=== PATIENT | male | born 1960 | race Caucasian/White ===

== ENCOUNTER 2016-08-18 06:27 | Emergency (ER) | payer SELFPAY ==
[~2016-08-18] VITALS: Ht 160 cm; Wt 78.0 kg
[2016-08-18 06:32] VITALS: Ht 160 cm; Wt 78.0 kg
[2016-08-18] MEDS ORDERED: DOCU-144 PO (07:23)
[2016-08-18] MEDS ORDERED: HYDR-902 PO (07:23)
[2016-08-18] MEDS ORDERED: IBUP-1542 PO (07:23)
--- NOTE | 2016-08-18 09:34 | ERD ---
ER Documentation Chief Complaint Date/Time DATE: 08/18/16 TIME: 09:32 Chief Complaint ap since monday, has right inguinal hernia HPI Patient is a 56-year-old male with no medical problems who presents with a hernia. He said that he has pain in his right lower quadrant but says that it is his "hernia". 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 He lifts heavy boxes of dishes. He denies vomiting. He had a normal bowel movement yesterday. The hernia is reducible. He has had no treatment as of yet. Upon review of old medical records this is the patient's third visit to the ER since 2012. He does not currently have a primary doctor. ROS All systems reviewed and are negative except as per history of present illness. Medications Home Meds Active Scripts Ibuprofen* (Motrin*) 600 Mg Tab, 600 MG PO Q8, #30 TAB Prov:CHAD GONZALEZ MD 08/18/16 Docusate Sodium* (Colace*) 100 Mg Capsule, 100 MG PO TID, #30 CAP Prov:CHAD GONZALEZ MD 08/18/16 Hydrocodone/Acetaminophen ([place] 10-325 Tablet) 1 Each Tablet, 1 TAB PO Q6H Y for PAIN, #7 TAB Prov:CHAD GONZALEZ MD 08/18/16 Allergies Allergies: Coded Allergies: No Known Allergy (Unverified , 08/18/16) PMhx/Soc History of Surgery: Yes (3 HERNIA) Anesthesia Reaction: No Hx Neurological Disorder: No Hx Respiratory Disorders: No Hx Cardiac Disorders: No Hx Psychiatric Problems: No Hx Miscellaneous Medical Probl: No Hx Alcohol Use: No Hx Substance Use: No Hx Tobacco Use: Yes FmHx Family History: No diabetes Physical Exam Vitals Vital Signs Date Time Temp Pulse Resp B/P Pulse Ox O2 Delivery O2 Flow Rate FiO2 08/18/16 06:32 97.8 81 18 126/75 99 Physical Exam Const: No acute distress Head: Atraumatic Eyes: Normal Conjunctiva ENT: Normal External Ears, Nose and Mouth. Neck: Full range of motion..~ No meningismus. Resp: Clear to auscultation bilaterally Cardio: Regular rate and rhythm, no murmurs Abd: Soft, inguinal hernia in the right lower quadrant which is easily reducible without signs of obstruction or incarceration Skin: No petechiae or rashes Back: No midline or flank tenderness Ext: No cyanosis, or edema Neur: Awake and alert : No testicular swelling or pain, no hernia in the scrotal sac Procedures/MDM Patient is a 56-year-old male presents with what appears to be an acute right- sided inguinal hernia which is reducible. There is no sign of obstruction or incarceration at this time. I believe outpatient management is appropriate. I do believe that this will need to be surgically repaired. I will give him information for Dr. Guevara and he can schedule an outpatient elective hernia repair. The patient can return for any worsening symptoms. I doubt appendicitis or bowel obstruction at this time. Departure Diagnosis: Primary Impression: Hernia Additional Impression: Abdominal pain Abdominal location: right lower quadrant Qualified Code: R10.31 - Right lower quadrant abdominal pain Condition: Fair Patient Instructions: How a Hernia Develops Referrals: SHIELA GUEVARA M.D. Additional Instructions: Specialist:Usted tiene carly condicin mdica que requiere que michelle a un especialista dentro de los prximos 1-2 solis.POR FAVOR,CON SILVA SEGUIMIENTO DE PRIMARIA PHSICIAN refferal. SI USTED NO TIENE UN MDICO GENERAL Y / O USTED NO PUEDE PAGAR mai a un mdico,los siguientes [place] RECURSOS sido suministrado a usted. ES SILVA RESPONSABILIDAD PARA SER VISTOS POR EL ESPECIALISTA: CHAD GONZALEZ MD Aug 18, 2016 09:34
== END 2016-08-18 07:50 | disposition home or self-care (01) ==
LOC: E/R 06:27
DX: K40.90 Unilateral inguinal hernia, without obstruction or gangrene, not specified as recurrent (principal); Z87.891 Personal history of nicotine dependence
CPT/HCPCS: 99283

== ENCOUNTER 2016-09-07 06:17 | Emergency (ER) | END 2016-09-07 06:50 | disposition home or self-care (01) | DX: K40.90 Unilateral inguinal hernia, without obstruction or gangrene, not specified as recurrent (principal); Z87.891 Personal history of nicotine dependence ==

== ENCOUNTER 2016-09-16 20:41 | Inpatient (IN) | payer OTHER ==
[~2016-09-16] VITALS: Ht 177.8 cm; Wt 70.0 kg
[~2016-09-16 20:41] MED LIST: DOCU-144 PO; HYDR-902 PO; IBUP-1542 PO
[2016-09-16 20:44] VITALS: Ht 177.8 cm; Wt 70.0 kg
[2016-09-16] MEDS ORDERED: ONDANSETRON (ODT) 4 MG TAB ODT STA (21:36)
[2016-09-16] MEDS ORDERED: HYDROmorphONE 1 MG/ML SYG IM STA (21:36)
[2016-09-16] MEDS ORDERED: ONDANSETRON 4 MG INJ IV STA ×2 (21:45→23:32)
[2016-09-16] MEDS ORDERED: HYDROmorphONE 1 MG/ML SYG IV STA ×2 (21:45→23:32)
[2016-09-16] MEDS ORDERED: SOD CHLORIDE 0.9% 500 ML IV STA (21:45)
[2016-09-16 21:55] VITALS: TEMP 98.5
[2016-09-16] MEDS ORDERED: PROPOFOL 200 MG INJ IV ONE (22:00)
[2016-09-16 22:30] LABS: BASOPHIL # 0.1 10^3/ul (0.0-0.1); BASOPHILS % 0.7 % (0.0-2.0); EOSINOPHILS # 0.1 10^3/ul (0.0-0.5); EOSINOPHILS % 0.4 % (0.0-7.0); HEMATOCRIT 46.5 % (42.0-52.0); HEMOGLOBIN 15.8 g/dl (14.0-18.0); LYMPHOCYTES # 1.1 10^3/ul (0.8-2.9); LYMPHOCYTES % 6.8 % (15.0-51.0); MEAN CORPUSCULAR HEMOGLOBIN 30.5 pg (29.0-33.0); MEAN CORPUSCULAR VOLUME 89.8 fl (82.0-101.0); MEAN PLATELET VOLUME 9.7 fl (7.4-10.4); MONOCYTE # 0.4 10^3/ul (0.3-0.9); MONOCYTES % 2.4 % (0.0-11.0); NEUTROPHIL # 14.9 10^3/ul (1.6-7.5); NEUTROPHILS % 89.2 % (39.0-77.0); PLATELET COUNT 305 10^3/UL (140-415); RED BLOOD COUNT 5.18 10^6/ul (4.70-6.10); RED CELL DISTRIBUTION WIDTH 13.3 % (11.5-14.5); WHITE BLOOD COUNT 16.8 10^3/ul (4.8-10.8)
--- NOTE | 2016-09-16 22:47 | ERA ---
ER Documentation Chief Complaint Date/Time DATE: 09/16/16 TIME: 22:35 Chief Complaint abd pain since 3 hours ago, hx- right inguinal hernia HPI This is a 56-year-old male with a known history of right inguinal hernia this complaint is been hurting him for a month. He says today however the hernia became very severe all of a sudden he was having a lot of pain with nausea and vomiting. He says he has some mild diffuse stomach pain as well. No diarrhea no fever no chest pain shortness of breath. No difficulty urinating or hematuria pain is very severe and sharp in the right inguinal region without radiation ROS All systems reviewed and are negative except as per history of present illness. Medications Home Meds Discontinued Scripts Ibuprofen* (Motrin*) 600 Mg Tab, 600 MG PO Q8, #30 TAB Prov:CHAD GONZALEZ MD 08/18/16 Docusate Sodium* (Colace*) 100 Mg Capsule, 100 MG PO TID, #30 CAP Prov:CHAD GONZALEZ MD 08/18/16 Hydrocodone/Acetaminophen ([place] 10-325 Tablet) 1 Each Tablet, 1 TAB PO Q6H Y for PAIN, #7 TAB Prov:CHAD GONZALEZ MD 08/18/16 Allergies Allergies: Coded Allergies: No Known Allergy (Unverified , 08/18/16) PMhx/Soc Anesthesia Reaction: No Hx Neurological Disorder: No Hx Respiratory Disorders: No Hx Cardiac Disorders: No Hx Psychiatric Problems: No Hx Miscellaneous Medical Probl: No Hx Alcohol Use: Yes Hx Substance Use: No Hx Tobacco Use: Yes Smoking Status: Current every day smoker FmHx Family History: No coronary disease Physical Exam Vitals Vital Signs Date Time Temp Pulse Resp B/P Pulse Ox O2 Delivery O2 Flow Rate FiO2 09/16/16 23:09 41 18 122/93 100 Room Air 09/16/16 22:40 100 100 09/16/16 21:55 98.5 55 20 154/95 100 Room Air 09/16/16 20:44 97.8 68 20 163/77 100 Physical Exam Const: Well-developed, well-nourished, he is in obvious distress from pain Head: Atraumatic, normocephalic Eyes: Normal Conjunctiva, PERRLA, EOMI, normal sclera, no nystagmus ENT: Normal External Ears, Nose and Mouth, moist mucus membranes. Neck: Full range of motion. No meningismus, no lymphadenopathy. Resp: Clear to auscultation bilaterally, no wheezing, rhonchi, rales Cardio: Regular rate and rhythm, no murmurs, S1 S2 present Abd: Soft, mild diffuse tenderness 4, non distended. Normal bowel sounds, no guarding or rebound, no pulsitile abdominal masses or bruits, there is a right inguinal hernia that is very firm to palpation and extremely tender no skin erythema Skin: No petechiae or rashes, no ecchymosis , no maculopapular rash Back: No midline or flank tenderness Ext: No cyanosis, or edema, FROM x 4, normal inspection, neurovascularly intact x 4 Neur: Awake and alert, STR 5/5 x 4, sensation intact x 4, no focal findings, cerebellum intact Psych: Normal Mood and Affect Result Diagram: 09/16/16220409/16/162204 Results 24 hrs Laboratory Tests Test 09/16/16 22:05 White Blood Count 16.810^3/ul Red Blood Count 5.1810^6/ul Hemoglobin 15.8g/dl Hematocrit 46.5% Mean Corpuscular Volume 89.8fl Mean Corpuscular Hemoglobin 30.5pg Mean Corpuscular Hemoglobin Concent 34.0g/dl Red Cell Distribution Width 13.3% Platelet Count 72028^3/UL Mean Platelet Volume 9.7fl Neutrophils % 89.2% Lymphocytes % 6.8% Monocytes % 2.4% Eosinophils % 0.4% Basophils % 0.7% Nucleated Red Blood Cells % 0.0/100WBC Neutrophils # 14.910^3/ul Lymphocytes # 1.110^3/ul Monocytes # 0.410^3/ul Eosinophils # 0.110^3/ul Basophils # 0.110^3/ul Nucleated Red Blood Cells # 0.010^3/ul Prothrombin Time 12.3Sec Prothrombin Time Ratio 1.0 INR International Normalized Ratio 0.91 Activated Partial Thromboplast Time 30.8Sec Sodium Level 148mmol/L Potassium Level 3.9mmol/L Chloride Level 108mmol/L Carbon Dioxide Level 21mmol/L Anion Gap 23 Blood Urea Nitrogen 14mg/dl Creatinine 0.76mg/dl Glucose Level 142mg/dl Calcium Level 9.8mg/dl Current Medications Medications (Trade) Dose Ordered Sig/Erica Route PRN Reason Start Time Stop Time Status Last Admin Dose Admin Hydromorphone HCl (Dilaudid) 1 mg ONCE STAT IM 09/16/16 21:36 09/16/16 21:38 DC 09/16/16 21:42 Ondansetron HCl 4 mg 4 mg ONCE STAT ODT 09/16/16 21:36 09/16/16 21:38 DC 09/16/16 21:42 Sodium Chloride (NS) 500 ml @ 500 mls/hr Q1H STAT IV 09/16/16 21:45 09/16/16 22:44 DC 09/16/16 22:08 Hydromorphone HCl (Dilaudid) 1 mg ONCE STAT IV 09/16/16 21:45 09/16/16 21:47 DC 09/16/16 22:08 Ondansetron HCl (Zofran Inj) 4 mg ONCE STAT IV 09/16/16 21:45 09/16/16 21:47 DC 09/16/16 22:08 Propofol 100 mg 100 mg ONCE ONCE IV 09/16/16 22:00 09/16/16 22:01 DC 09/16/16 22:09 Sodium Chloride (NS) 1,000 ml @ 80 mls/hr [id number] IV 09/16/16 23:15 09/17/16 11:44 Ondansetron HCl (Zofran Inj) 4 mg BRIDGE ORDER PRN IV NAUSEA AND/OR VOMITING 09/16/16 23:30 09/17/16 23:29 Acetaminophen (Tylenol Tab) 650 mg ER BRIDGE PRN PO MILD PAIN/FEVER 09/16/16 23:30 09/17/16 23:29 Hydromorphone HCl (Dilaudid) 1 mg ONCE STAT IV 09/16/16 23:32 09/16/16 23:33 DC Ondansetron HCl (Zofran Inj) 4 mg ONCE STAT IV 09/16/16 23:32 09/16/16 23:33 DC Procedures/MDM Procedural Sedation: Pre-assessment performed. See preceding complete history and physical for details. Time out performed. See sedation documentation for details. Risk, benefits and alternatives were discussed with the patient. Medication(s): Propofol Complications: No hypoxic or apneic events Recovered without incident. A minimum of 16 minutes of face to face time was performed including preparation, sedation and recovery time. Right inguinal hernia reduction by me: After adequate conscious sedation, I applied steady pressure to the right inguinal hernia but was unsuccessful in reducing the hernia. I paged general surgery on-call Dr. Santos He said to go ahead and get a CAT scan of the abdomen to determine if he will take the patient to the OR tonight or wait until the morning. We will admit to panel in the interim EKG: Rate/Rhythm: Sinus bradycardia QRS, ST, QT: NORMAL UT, QRS, QT] Impression: [Sinus bradycardia Departure Diagnosis: Primary Impression: Incarcerated right inguinal hernia Condition: Stable STACIA CARMICHAEL DO Sep 16, 2016 22:46
[2016-09-16 22:50] LABS: CALCIUM 9.8 mg/dl (8.4-10.2); CREATININE 0.76 mg/dl (0.61-1.24); POTASSIUM 3.9 mmol/L (3.5-5.1)
[2016-09-16] MEDS ORDERED: SOD CHLORIDE 0.9% 1,000 ML IV SCH (23:15)
[2016-09-16 23:26] LABS: INR 0.91; PARTIAL THROMBOPLASTIN TIME 30.8 Sec (25.0-35.0); PROTIME 12.3 Sec (12.2-14.2)
[2016-09-16] MEDS ORDERED: ONDANSETRON 4 MG INJ IV PRN (23:30)
[2016-09-16] MEDS ORDERED: ACETAMINOPHEN 325 MG TAB PO PRN (23:30)
[2016-09-17] VITALS (21 sets, daily range): BP systolic 119–156; BP diastolic 62–83; PULSE 47–82; RESP 10–20
--- NOTE | 2016-09-17 00:40 | RADRPT ---
PROCEDURE: CT ABDOMEN/PELVIS WITHOUT CONTRAST CLINICAL INDICATION: 56-year-old male with abdominal pain. The patient has a history of right ing uinal hernia. TECHNIQUE: The study was performed utilizing a GE FiTeqpeed VCT 64-slice CT scanner. Direct axia l sections were obtained through the abdomen and pelvis without the use of intravenous contrast mate rial. Sagittal and coronal reformations were obtained. One or more of the following dose reduction t echniques were utilized: automated exposure control, adjustment of the mA and/or kV according to pat ient's size or use of iterative reconstruction technique. The images were reviewed on a [facility]st [facility]. CTD/vol = 7.9 mGy; Total Exam DLP = 446.9 mGy-cm. COMPARISON: None. FINDINGS: There is minimal bibasilar subsegmental atelectasis. There is no evidence for significant pleural e ffusion. The liver has a normal size and contour without focal areas of abnormal density. No intrah epatic nor extrahepatic biliary ductal dilatation is seen. The gallbladder demonstrates no wall thic kening nor pericholecystic fluid. No biliary stones are evident. The pancreas is without areas of ab normal attenuation. The spleen is identified and has a normal size without abnormal density. The ad renal glands are unremarkable. The kidneys are without abnormal density. No hydroureteronephrosis no r nephroureterolithiasis is evident. The urinary bladder contains urine. There is a small hiatal her flavia. There is a right inguinal hernia present with an opening of 25 x 27 mm containing mild fluid as well as a loop of small bowel which appears to be mildly dilated within the hernia sac however the bowel proximal and distal to the hernia is decompressed. The appendix is visualized and is without abnormal thickening or surrounding inflammatory reaction. There is no significant pelvic free fluid. The prostate is mildly prominent containing small punctate calcifications. The aortoiliac vessels mildly calcified with infrarenal mid abdominal aortic aneurysm measuring up to 3.3 x 3.2 cm. The os seous structures are intact. IMPRESSION: 1. Right inguinal hernia containing a loop of small bowel which appears to be mildly dilated and fl uid-filled within the hernia sac. A closed-loop partial or early obstruction cannot be excluded. Cl inical correlation for reducibility is necessary. 2. Infrarenal mid abdominal aortic aneurysm with maximal transverse dimension of 3.[address] evidence for appendicitis. 4. Small hiatal hernia. .Bg Danielson MD, MD Date Time Electronically viewed and signed by .Bg Danielson MD, on 09/17/2016 00:40 .Verónica/
--- NOTE | 2016-09-17 00:42 | RADRPT ---
PROCEDURE: CHEST - 1 VIEW CLINICAL INDICATION: 56-year-old male with chest pain. TECHNIQUE: A single frontal portable view of the chest was performed. The images were reviewed on a PACS workstation. COMPARISON: None. FINDINGS: The cardiomediastinal silhouette has a normal appearance. There is no evidence for an infiltrate. There is no evidence for congestive heart failure. There is no evidence for pneumothorax. There is a n old fracture deformity involving the left sixth and seventh ribs in the mid axillary line. IMPRESSION: 1. No evidence for active cardiopulmonary disease. 2. Old left sixth and seventh rib fracture deformities. .Bg Danielson MD, MD Date Time Electronically viewed and signed by .Bg Danielson MD, on 09/17/2016 00:42 .M/
[2016-09-17] MEDS: morphine 4 MG/ML VIAL IV PRN ×3 (00:52→23:22)
[2016-09-17] MEDS ORDERED: ONDANSETRON 4 MG INJ IV PRN ×3 (01:00→07:00)
[2016-09-17] MEDS ORDERED: DEXTROSE 5%-0.45% NACL 1,000 ML IV SCH (01:30)
[2016-09-17] MEDS ORDERED: HYDROmorphONE 1 MG/ML SYG IV PRN ×3 (02:00→09:00)
[2016-09-17] MEDS: PIPER-TAZO 3.375 GM IV (PMX) 100 ML IVPB SCH ×2 (02:06→05:03)
[2016-09-17 04:53] LABS: BASOPHIL # 0.1 10^3/ul (0.0-0.1); BASOPHILS % 0.4 % (0.0-2.0); HEMOGLOBIN 14.9 g/dl (14.0-18.0); LYMPHOCYTES # 0.9 10^3/ul (0.8-2.9); LYMPHOCYTES % 5.9 % (15.0-51.0); MEAN CORPUSCULAR HEMOGLOBIN 29.7 pg (29.0-33.0); MEAN CORPUSCULAR HGB CONC 33.1 g/dl (32.0-37.0); MEAN CORPUSCULAR VOLUME 89.8 fl (82.0-101.0); MEAN PLATELET VOLUME 9.7 fl (7.4-10.4); MONOCYTE # 0.4 10^3/ul (0.3-0.9); MONOCYTES % 2.3 % (0.0-11.0); NEUTROPHILS % 90.9 % (39.0-77.0); PLATELET COUNT 302 10^3/UL (140-415); RED BLOOD COUNT 5.01 10^6/ul (4.70-6.10); RED CELL DISTRIBUTION WIDTH 13.4 % (11.5-14.5); WHITE BLOOD COUNT 15.4 10^3/ul (4.8-10.8)
[2016-09-17 05:43] LABS: ALBUMIN 4.2 g/dl (3.3-4.9); ALBUMIN/GLOBULIN RATIO 1.2; BILIRUBIN,INDIRECT 0.3 mg/dl (0-1.1); BILIRUBIN,TOTAL 0.3 mg/dl (0.2-1.3); CALCIUM 9.5 mg/dl (8.4-10.2); CREATININE 0.72 mg/dl (0.61-1.24); POTASSIUM 3.9 mmol/L (3.5-5.1); TOTAL PROTEIN 7.7 g/dl (6.1-8.1)
[2016-09-17] MEDS ORDERED: MIDAZOLAM 1 MG/ML 2 ML INJ ONE (06:49)
[2016-09-17] MEDS ORDERED: PROPOFOL 20 ML ONE (06:50)
[2016-09-17] MEDS ORDERED: FENTAnyl 50 MCG/ML VIAL ONE (06:50)
--- NOTE | 2016-09-17 06:51 | CONS ---
Date/Time of Note Date/Time of Note DATE: 09/17/16 TIME: 06:51 Assessment/Plan Assessment/Plan Additional Assessment/Plan [facility] INPATIENT CONSULTATION NOTE DATE OF SERVICE: 09/17/2016 PLACE OF SERVICE: [facility], preoperative area ASSESSMENT AND PLAN: A very-pleasant 56-year-old otherwise seemingly healthy gentleman presenting with incarcerated right inguinal hernia. Due to his elevated white blood cell count and amount of abdominal pain, I assess this problem to be an urgent surgical problem that needs repair with a laparoscopic, possible open right inguinal hernia repair, possibly with mesh. I explained my rationale to the patient and described the operation in detail including risks, benefits, and alternatives. After careful consideration, the patient appeared to understand and agreed with the plans. Please note that there was no family present during my discussions with the patient. He also expressed to me that he did not need me to call in the morning after the operation was done. With above assessment, I've recommended the followin. To the operating room for above Thank you very much for having me involved in the care of this very pleasant patient and wonderful family. If you have any questions, please feel free to contact me at [phone]. Nature of presenting problem: High severity Please note that, given the limited number of diagnoses or management options, the moderate amount and/or complexity of data needed to be reviewed, and high risk of complications and/or morbidity or mortality, this qualifies as moderate complexity type of decision-making. Disclaimer: Inadvertent spelling and grammatical errors are likely due to EHR/ dictation software use and do not reflect on the quality of delivered patient care. Also, please note that the electronic time recorded on this node does not necessarily reflect the actual time of the visit. Updated clinical summary: 56-year-old gentleman with right inguinal hernia who presented to [facility] emergency department with incarcerated right inguinal hernia associated with nausea and vomiting and white blood cell count of 16. Comorbidities: 1. History of inguinal hernia on the right 2. Smoking (current every day) 3. Infrarenal mid abdominal aortic aneurysm with maximal transverse dimension of 3.3 cm. ([facility] CT abd/pelvis 09/17/16) 4. Small hiatal hernia. ([facility] CT abd/pelvis 09/17/16) CONSULTATION REQUESTED BY: Milagro Leon MD HISTORY OF PRESENT ILLNESS: The patient is a very pleasant 56-year-old gentleman without significant known other medical problems who has had a known right inguinal hernia that has required 2 or 3 previous recent emergency room visits. Patient was instructed to follow-up with surgery, but that did not happen. He presented to the emergency department last night with abdominal pain of a few hours duration associated with nausea and vomiting. His exam showed an incarcerated hernia that was not reducible. CT scan demonstrated loop of bowel inside of the hernia without evidence of pneumatosis or free air. I mobilized the operating room team to do an urgent operation to repair the hernia early this morning. I met him in the preoperative area and did a complete history and physical. He reported no other major complaints to me at that time and his main complaint was pain which was 10 out of 10 at its worse, located in the right lower quadrant, exacerbated with pressure on the area and not alleviated by any factors. Some radiation to the upper flanks. No fevers or chills at home and no issues with blood in the stool or urine, or major difficulties with diarrhea or constipation in the past. ALLERGIES: NO KNOWN DRUG ALLERGIES MEDICATIONS Documented in the electronic records and reviewed by me. Please see the electronic records for details, as well as details for inpatient medications which were also reviewed by me. 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 + Tob (current every day);- ETOH;-IVDU FAMILY HISTORY: There are no significant medical, surgical or oncologic issues in the family as reported by the patient or reflected in the chart. REVIEW OF SYSTEMS: Other than mentioned above, there were no other pertinent positives or pertinent negatives in an otherwise complete 14 point review of systems. PHYSICAL EXAMINATION GENERAL: The patient appears to be a very pleasant gentleman of descent lying in bed, appearing stated age, and otherwise in no acute distress. BMI: 22.1 VITAL SIGNS: AVSS (please also see auto important data if available as well as the electronic records) HEENT: Normocephalic and atraumatic. Extraocular muscles and hearing are grossly intact bilaterally and symmetrically. Sclerae are nonicteric. Oral cavity is clear; oral mucosa appear to be pink and moist. Dentition: fair. NECK: Supple. There is no lymphadenopathy or JVD. There is no submental, submandibular or supraclavicular lymphadenopathy. CHEST: Rises symmetrically with each breath; patient is breathing comfortably. There are no audible wheezes, rales or rhonchi on the gross exam. HEART: Pulse is regular and palpable on the right wrist. Capillary refill is normal. Carotid pulses are palpable bilaterally and symmetrically in the neck. EXTREMITIES: Lower extremities contain no pitting edema around the ankles bilaterally and symmetrically. ABDOMEN: Abdomen is soft, mildly tender towards the right lower quadrant was significantly tender or the lump in the right groin, and nondistended. No evidence of ascites, organomegaly, caput medusae, engorged subcutaneous veins, or other abnormalities. There are no peritoneal signs or guarding. Skin overlying the right groin area is normal. There is no evidence of hernia on the left side. Right groin hernia is not reducible. SKIN: Appears to be pink and feels warm to touch. NEUROLOGIC: Awake, alert, and follows commands appropriately. LABORATORY DATA: White blood cell count 16.8 on admission and 15.4 after hydration. Hemoglobin 14.9, platelets 302, sodium 146, CO2 28, creatinine 0.72 , alkaline phosphatase 130, albumin 4.2 after hydration. INR 0.91. IMAGING: See electronic chart. Please note that I've personally reviewed all pertinent available images and I agree in general with their overall reported findings. Abdomen and pelvic CT [facility] 09/17/2016 IMPRESSION: 1. Right inguinal hernia containing a loop of small bowel which appears to be mildly dilated and fluid-filled within the hernia sac. A closed-loop partial or early obstruction cannot be excluded. Clinical correlation for reducibility is necessary. 2. Infrarenal mid abdominal aortic aneurysm with maximal transverse dimension of 3.[address] evidence for appendicitis. 4. Small hiatal hernia. Consultation Date/Type/Reason Admit Date/Time Sep 16, 2016 at 23:16 Social History Smoking Status: Current every day smoker Exam/Review of Systems Vital Signs Vitals Vital Signs Date Time Temp Pulse Resp B/P Pulse Ox O2 Delivery O2 Flow Rate FiO2 09/17/16 03:00 97.8 65 16 140/78 99 Room Air 09/16/16 22:40 100 Intake and Output 09/16/16 09/16/16 09/17/16 15:00 23:00 07:00 Intake Total 100 ml Output Total 1000 ml Balance -900 ml Results Result Diagram: 09/17/16 0438 09/17/16 0438 Results 24 hrs Laboratory Tests Test 09/16/16 22:05 09/17/16 04:38 White Blood Count 16.8 H 15.4 H Red Blood Count 5.18 5.01 Hemoglobin 15.8 14.9 Hematocrit 46.5 45.0 Mean Corpuscular Volume 89.8 89.8 Mean Corpuscular Hemoglobin 30.5 29.7 Mean Corpuscular Hemoglobin Concent 34.0 33.1 Red Cell Distribution Width 13.3 13.4 Platelet Count 305 302 Mean Platelet Volume 9.7 9.7 Neutrophils % 89.2 H 90.9 H Lymphocytes % 6.8 L 5.9 L Monocytes % 2.4 2.3 Eosinophils % 0.4 0.0 Basophils % 0.7 0.4 Nucleated Red Blood Cells % 0.0 0.0 Neutrophils # 14.9 H 14.0 H Lymphocytes # 1.1 0.9 Monocytes # 0.4 0.4 Eosinophils # 0.1 0.0 Basophils # 0.1 0.1 Nucleated Red Blood Cells # 0.0 0.0 Prothrombin Time 12.3 Prothrombin Time Ratio 1.0 INR International Normalized Ratio 0.91 Activated Partial Thromboplast Time 30.8 Sodium Level 148 H 146 H Potassium Level 3.9 3.9 Chloride Level 108 103 Carbon Dioxide Level 21 28 Anion Gap 23 H 19 H Blood Urea Nitrogen 14 12 Creatinine 0.76 0.72 Glucose Level 142 172 Calcium Level 9.8 9.5 Total Bilirubin 0.3 Direct Bilirubin 0.00 Indirect Bilirubin 0.3 Aspartate Amino Transf (AST/SGOT) 19 Alanine Aminotransferase (ALT/SGPT) 29 Alkaline Phosphatase 130 H Total Protein 7.7 Albumin 4.2 Globulin 3.50 H Albumin/Globulin Ratio 1.20 Medications Medications Current Medications Sodium Chloride (NS) 1,000 ml @ 80 mls/hr [id number] IV ; Start 09/16/16 at 23:15 ; Stop 09/17/16 at 11:44 Morphine Sulfate 4 mg 4 mg Q4H PRN IV SEVERE PAIN LEVEL 7-10 Last administered on 09/17/16t 05:02; Admin Dose 4 MG; Start 09/17/16 at 01:00 Dextrose/Sodium Chloride (D5-1/2ns) 1,000 ml @ 100 mls/hr Q10H IV Last administered on 09/17/16 01:51; Admin Dose 100 MLS/HR; Start 09/17/16 at 01:30 Hydromorphone HCl (Dilaudid) 1 mg Q3H PRN IV PAIN LEVEL 7-10; Start 09/17/16 at 02:00 Ondansetron HCl 4 mg 4 mg Q4H PRN IV NAUSEA AND/OR VOMITING; Start 09/17/16 at 02:00 Piperacillin Sod/ Tazobactam Sod (Zosyn 3.375gm/ 100 ml (Pmx)) 100 ml @ 200 mls /hr Q6 IVPB Last administered on 09/17/16 05:03; Admin Dose 200 MLS/HR; Start 09/17/16 at 02:00 SHIELA GUEVARA M.D. Sep 17, 2016 06:51
[2016-09-17] MEDS ORDERED: ROCURONIUM 50 MG INJ ONE (06:55)
[2016-09-17] MEDS ORDERED: SUCCINYLCHOLINE CHLORIDE 100 MG/5 ML SYG IV ONE (06:55)
[2016-09-17] MEDS ORDERED: NEOSTIGMINE 3 MG/3 ML SYRINGE ONE ×2 (06:56)
[2016-09-17] MEDS ORDERED: DEXAMETHASONE 4 MG/ML 1 ML INJ ONE (06:56)
[2016-09-17] MEDS ORDERED: ONDANSETRON 4 MG INJ ONE (06:56)
[2016-09-17] MEDS ORDERED: GLYCOPYRROLATE 0.4 MG INJ ONE (06:56)
[2016-09-17] MEDS ORDERED: PROCHLORPERAZINE 10 MG INJ IV PRN (07:00)
[2016-09-17] MEDS ORDERED: KETOROLAC 30 MG INJ IV PRN (07:00)
[2016-09-17] MEDS ORDERED: EPHEDrine SULFATE 50 MG/5 ML SYG ONE (07:00)
[2016-09-17] MEDS ORDERED: LIDOCAINE 2% (SDV) 5 ML INJ ONE (07:00)
[2016-09-17] MEDS ORDERED: HYDROmorphONE (0.2 MG/ML) 10ML SYG IV PRN (07:00)
[2016-09-17] MEDS ORDERED: DIPHENHYDRAMINE 50 MG INJ IV PRN (07:00)
[2016-09-17] MEDS ORDERED: MEPERIDINE 25 MG INJ IV PRN (07:00)
[2016-09-17] MEDS ORDERED: POLYMYXIN/BACITRACIN 1L IRRIG ONE (07:06)
[2016-09-17] MEDS ORDERED: BUPIVACAINE 0.25%/EPI (SDV) 30 ML INJ ONE (07:06)
[2016-09-17] MEDS ORDERED: HYDROmorphONE 2 MG/ML SYG ONE (07:46)
[2016-09-17] MEDS ORDERED: DOCUSATE SODIUM 100 MG CAP PO PRN (09:00)
[2016-09-17] MEDS ORDERED: BISACODYL 10 MG SUPP PR PRN (09:00)
[2016-09-17] MEDS ORDERED: NA PHOSPHATE/BIPHOS 133 ML ENEMA PR PRN (09:00)
--- NOTE | 2016-09-17 09:02 | OPR ---
Date/Time of Note Date/Time of Note DATE: 09/17/16 TIME: 09:01 Operative Report Operative\Procedure Findings [facility] INPATIENT OPERATIVE NOTE PLACE OF SERVICE: [facility] DATE OF SURGERY: 09/17/2016 PREOPERATIVE DIAGNOSIS: 1. Right inguinal hernia with incarceration possible bowel obstruction. History of inguinal hernia on the right 2. Smoking (current every day) 3. Infrarenal mid abdominal aortic aneurysm with maximal transverse dimension of 3.3 cm. ([facility] CT abd/pelvis 09/17/16) 4. Small hiatal hernia. ([facility] CT abd/pelvis 09/17/16) 5. Status post umbilical hernia repair POSTOPERATIVE DIAGNOSIS: 1. Right inguinal hernia with incarceration possible bowel obstruction. History of inguinal hernia on the right 2. Smoking (current every day) 3. Infrarenal mid abdominal aortic aneurysm with maximal transverse dimension of 3.3 cm. ([facility] CT abd/pelvis 09/17/16) 4. Small hiatal hernia. ([facility] CT abd/pelvis 09/17/16) 5. Status post umbilical hernia repair OPERATION: 1. Laparoscopic right inguinal hernia repair with mesh (10 cm x 15 cm Symbotex) SURGEON: Shiela Guevara M.D. COOLER OPERATOR: None ANESTHESIA: General endotracheal tube anesthesia ANESTHESIOLOGIST: Milagro Castro M.D. BRIEF SUMMARY: An otherwise uncomplicated laparoscopic right inguinal hernia repair with mesh was performed with findings of incarcerated but viable bowel. Updated clinical summary: 56-year-old gentleman with right inguinal hernia who presented to [facility] emergency department with incarcerated right inguinal hernia associated with nausea and vomiting and white blood cell count of 16. Comorbidities: 1. History of inguinal hernia on the right 2. Smoking (current every day) 3. Infrarenal mid abdominal aortic aneurysm with maximal transverse dimension of 3.3 cm. ([facility] CT abd/pelvis 09/17/16) 4. Small hiatal hernia. ([facility] CT abd/pelvis 09/17/16) BRIEF HISTORY: The patient is a very pleasant 56-year-old gentleman with right inguinal hernia who presented to [facility] emergency department with incarcerated right inguinal hernia associated with nausea and vomiting and white blood cell count of 16. I met with the patient (no family present during my discussions with the patient) and counseled them regarding the possible options of treatment, and I strongly suggested a laparoscopic, possible open, right groin hernia repair, possible mesh, possible bilateral. We reviewed the operation in detail as well as the risks, benefits, alternatives, and expected outcomes of this operation. After careful consideration of all the risks, benefits, and alternatives, the patient appeared to understand those risks and wished to proceed with surgery. For a detailed report of my consultation with patient, please refer to my separate consultation note. STATEMENT OF THE INFORMED CONSENT: The patient appeared to understand the risks of the operation to include, but not be limited to risk of postoperative pain and scar tissue, possible infection or bleeding requiring other interventions such as opening the wound, placement of drainage catheters, or other operative interventions; possible injury to surrounding to structures including bowel, bladder, bile duct, or blood vessels, or solid organs such as liver, kidney, or pancreas requiring other interventions or procedures; possible infection of the mesh causing significant increase in morbidity and mortality and requiring multiple interventions including but not limited to, placement of drainage catheters, imaging studies, as well as operative interventions with possible removal of the mesh and recurrence of hernia requiring future repair; possible other source of sepsis such as urinary tract infections or pneumonias, or other sources of potentially life threatening problems such as deep venous thrombus formation causing pulmonary embolism, myocardial arrhythmias and infarctions, and even . After careful consideration of all their options, the patient appeared to understand and wished to proceed with surgery. DESCRIPTION OF PROCEDURE: After obtaining informed consent, the patient was brought into the operating room and was placed in a normal supine position, where successful general endotracheal tube anesthesia was performed. Intravenous access was already in place and intravenous antimicrobials had been appropriately chosen and dosed prior to the operation. The patient's abdominal skin was prepped and draped from the nipple line down to the level of the upper thighs including the groin and in the usual sterile fashion. We then called a surgical time-out where the patient's identification, date of , nature of the operation, allergies, presence of intravenous antimicrobials, presence of needed equipment, and any other concerns were reviewed and agreed upon by all members of the operating room team. We then started the operation by placing a 5 mm [employer] trocar into the peritoneal space through a left lower quadrant 5 mm skin incision and using direct entry technique visualizing all the layers of the abdominal wall as we entered. Upon entry to the peritoneal space, we did not notice any obvious evidence of injury to underlying structures. We insufflated the abdominal cavity to a maximum pressure of 15 mmHg and again noted no significant adhesions in the region and found presence of a right inguinal hernia as suggested by the preoperative evaluation. We placed a 12 mm trocar in the umbilical space as well as another 5 mm trocar in the right lower quadrant all under direct visualization and after injecting the sites with quarter percent Marcaine with epinephrine. With our instruments in place, we had excellent visualization and access to the pelvis. By positioning the patient in a Trendelenburg left side down position, the contents of the inguinal hernia appear to be made up of a loop of small intestine that was going into the right inguinal hernia through the internal ring. The hernia was not spontaneously reducing. The proximal and distal bowel appeared to be viable. We carefully inspected the left side and there was no evidence of any hernia on that side. We then were able to reduce the contents of the hernia sac with gentle manipulation from the inside and outside. The bowel that was incarcerated in the right inguinal hernia sac appear to be hyperemic but not necrotic. The area of hyperemia quickly resolved after removal of the bowel from the hernia. There is no other evidence of concern for infection or perforation. We then placed a transverse cut above the area of the hernia in the standard fashion on the peritoneum and took down the peritoneal covering from the right groin region until we were able to dissect the sac completely from the cord structures. After complete dissection of the sac from the cord structures, we ensured adequate hemostasis and then placed a 10 cm x 15 cm mesh (I had to cut to size a larger mesh into the desired mesh of the available Symbotex in the OR) into the abdominal cavity and widely covered the area of the right hernia with mesh within the pocket. The mesh laid in the pocket nicely. We then secured the mesh onto the pubic tubercle and on the superior aspect and the most lateral aspect of the mesh using absorbable tacks. This was done under low insufflation. We again ensured adequate hemostasis and then covered the mesh with peritoneum using the peritoneal layer that we had taken down previously. After insuring adequate hemostasis, we removed all our equipment from the abdominal cavity including the pneumoperitoneum, closed the umbilical fascial defect using one figure-of- eight 0 Vicryl suture on a UR 6 needle, washed the wounds with copious amounts normal saline, injected the initial entry site with quarter percent Marcaine with epinephrine, and then closed the skin using interrupted 4 Monocryl suture. Light dressing was then applied. At the end of the operation, both the sponge count and needle count were reportedly correct x2. The patient tolerated the procedure without any reported complications. ESTIMATED BLOOD LOSS: 5 mL BLOOD OR BLOOD PRODUCT TRANSFUSIONS: None to my knowledge. SPECIMENS: None COMPLICATIONS: None. DISPOSITION: Recovery area. Disclaimer: Inadvertent spelling and grammatical errors are likely due to EHR/ dictation software use and do not reflect on the quality of delivered patient care. Also, please note that the electronic time recorded on this node does not necessarily reflect the actual time of the visit. SHIELA GUEVARA M.D. Sep 17, 2016 09:02
[2016-09-17] MEDS: D5W-0.45 NACL + KCL 20 MEQ 1,000 ML IV SCH ×2 (10:29→19:00)
[2016-09-17] MEDS: FAMOTIDINE 20 MG INJ IV SCH (10:37)
[2016-09-17] MEDS: ENOXAPARIN 40 MG/0.4 ML SYG SC SCH (11:59)
--- NOTE | 2016-09-17 13:06 | HP ---
Date/Time of Note Date/Time of Note DATE: 09/17/16 TIME: 12:49 Assessment/Plan VTE Prophylaxis VTE Prophylaxis Intervention: SCD's Lines/Catheters IV Catheter Type (from Nrs): Peripheral IV Assessment/Plan Assessment/Plan - sp Laparoscopic right inguinal hernia repair with mesh (10 cm x 15 cm Symbotex ) - Right inguinal hernia with incarceration possible bowel obstruction. History of inguinal hernia on the right - Infrarenal mid abdominal aortic aneurysm with maximal transverse dimension of 3.3 cm. ([facility] CT abd/pelvis 09/17/16) -Per surgery -N.p.o., diet per surgery -IV fluids -Pain control - Incentive spirometer -Check for signs and symptoms of infection - Current Tobaccoism- everyday - smoking cessation -Dyslipidemia -Chronic obstructive pulmonary disease-no active issues - Small hiatal hernia. - Status post umbilical hernia repair -SCDs for DVT prophylaxis Patient is n.p.o. hold to p.o. medications once stable further recommendations based on patient's clinical course and of care discussed with Dr. Leon/staff /the patient, HPI/ROS Admit Date/Time Admit Date/Time Sep 16, 2016 at 23:16 Hx of Present Illness This is a 56-year-old male with a known history of right inguinal hernia this complaint is been hurting him for a month. He says today however the hernia became very severe all of a sudden he was having a lot of pain with nausea and vomiting. He says he has some mild diffuse stomach pain as well. No diarrhea no fever no chest pain shortness of breath. No difficulty urinating or hematuria pain is very severe and sharp in the right inguinal region without radiation. Per patient he smokes every day. Patient denies any fall or accident ROS All systems reviewed and are negative except as per history of present illness. Allergies Allergies: Coded Allergies: No Known Allergy (Unverified , 08/18/16) PMhx/Soc Anesthesia Reaction: No Hx Neurological Disorder: No Hx Respiratory Disorders: No Hx Cardiac Disorders: No Hx Psychiatric Problems: No Hx Miscellaneous Medical Probl: No Hx Alcohol Use: Yes Hx Substance Use: No Hx Tobacco Use: Yes Smoking Status: Current every day smoker FmHx Family History: No coronary disease ROS Respiratory: no complaints Cardiovascular: no complaints Gastrointestinal: pain (Surgical pain otherwise pain from hernia is much better ) Genitourinary: no complaints Musculoskeletal: no complaints Skin: no complaints Neurologic: no complaints PMH/Family/Social Social History Smoking Status: Current every day smoker Exam/Review of Systems Vital Signs Vitals Vital Signs Date Time Temp Pulse Resp B/P Pulse Ox O2 Delivery O2 Flow Rate FiO2 09/17/16 10:38 98.6 09/17/16 09:52 56 12 126/77 96 Room Air 09/16/16 22:40 100 Intake and Output 09/16/16 09/16/16 09/17/16 15:00 23:00 07:00 Intake Total 100 ml Output Total 1000 ml Balance -900 ml Exam Constitutional: alert, oriented, well developed Respiratory: clear to auscultation, normal air movement Cardiovascular: nl pulses, regular rate and rhythm Gastrointestinal: other (sp Laparoscopic right inguinal hernia repair with mesh ), soft Musculoskeletal: nl extremities to inspection Extremities: normal pulses Neurological: nl mental status, nl speech Skin: other Labs Result Diagram: 09/17/1643709/17/16437 Medications Medications Current Medications Morphine Sulfate (morphine) 4 mg Q4H PRN IV SEVERE PAIN LEVEL 7-10 Last administered on 09/17/16t 05:02; Admin Dose 4 MG; Start 09/17/16 at 01:00 Hydromorphone HCl (Dilaudid) 1 mg Q3H PRN IV PAIN LEVEL 7-10; Start 09/17/16 at 02:00 Ondansetron HCl 4 mg 4 mg Q4H PRN IV NAUSEA AND/OR VOMITING; Start 09/17/16 at 02:00 Potassium Chloride/Dextrose/ Sod Cl (D5-1/2ns + KCl 20 Meq) 1,000 ml @ 100 mls/ hr Q10H IV Last administered on 09/17/16t 10:29; Admin Dose 100 MLS/HR; Start 09/17/16 at 09:00 Acetaminophen/ Hydrocodone Bitart ([place] (5/325)) 1 tab Q4H PRN PO PAIN LEVEL 4 -7; Start 09/17/16 at 09:00 Acetaminophen/ Hydrocodone Bitart ([place] (5/325)) 2 tab Q4H PRN PO PAIN LEVEL 7 -10; Start 09/17/16 at 09:00 Hydromorphone HCl (Dilaudid) 0.5 mg Q2H PRN IV PAIN; Start 09/17/16 at 09:00 Hydromorphone HCl (Dilaudid) 1 mg Q2H PRN IV SEVERE PAIN; Start 09/17/16 at 09: 00 Docusate Sodium (Colace) 100 mg BID PRN PO CONSTIPATION; Start 09/17/16 at 09: 00 Bisacodyl (Dulcolax Supp) 10 mg BID PRN [place] CONSTIPATION; Start 09/17/16 at 09: 00 Sodium Biphosphate/ Sodium Phosphate (Fleet Enema) 133 ml BID PRN [place] CONSTIPATION; Start 09/17/16 at 09:00 Famotidine (Pepcid Iv) 20 mg DAILY IV Last administered on 09/17/16 10:37; Admin Dose 20 MG; Start 09/17/16 at 09:00 Enoxaparin Sodium (Lovenox) 40 mg DAILY SC Last administered on 09/17/16 11:59 ; Admin Dose 40 MG; Start 09/17/16 at 09:00 Procedures Procedures EKG: Rate/Rhythm: Sinus bradycardia QRS, ST, QT: NORMAL NM, QRS, QT] Impression: [Sinus bradycardia BHAVNA BARKER Sep 17, 2016 12:59
[2016-09-17 13:24] LABS: ALBUMIN 4.3 g/dl (3.3-4.9); BILIRUBIN,INDIRECT 0.3 mg/dl (0-1.1); BILIRUBIN,TOTAL 0.3 mg/dl (0.2-1.3); TOTAL PROTEIN 7.8 g/dl (6.1-8.1)
[2016-09-17] MEDS: ZOLPIDEM 5 MG TAB PO PRN (21:37)
[2016-09-18] MEDS: D5W-0.45 NACL + KCL 20 MEQ 1,000 ML IV SCH ×2 (05:00→15:00)
[2016-09-18 05:28] LABS: BASOPHIL # 0.1 10^3/ul (0.0-0.1); BASOPHILS % 0.6 % (0.0-2.0); EOSINOPHILS # 0.1 10^3/ul (0.0-0.5); EOSINOPHILS % 0.5 % (0.0-7.0); HEMATOCRIT 42.7 % (42.0-52.0); HEMOGLOBIN 14.2 g/dl (14.0-18.0); LYMPHOCYTES # 2.8 10^3/ul (0.8-2.9); LYMPHOCYTES % 15.4 % (15.0-51.0); MEAN CORPUSCULAR HEMOGLOBIN 30.1 pg (29.0-33.0); MEAN CORPUSCULAR HGB CONC 33.3 g/dl (32.0-37.0); MEAN CORPUSCULAR VOLUME 90.7 fl (82.0-101.0); MEAN PLATELET VOLUME 10.2 fl (7.4-10.4); MONOCYTE # 1.3 10^3/ul (0.3-0.9); MONOCYTES % 6.9 % (0.0-11.0); NEUTROPHIL # 13.9 10^3/ul (1.6-7.5); NEUTROPHILS % 76.1 % (39.0-77.0); PLATELET COUNT 290 10^3/UL (140-415); RED BLOOD COUNT 4.71 10^6/ul (4.70-6.10); RED CELL DISTRIBUTION WIDTH 13.6 % (11.5-14.5); WHITE BLOOD COUNT 18.3 10^3/ul (4.8-10.8)
[2016-09-18 05:48] LABS: INR 0.94; PROTIME 12.6 Sec (12.2-14.2)
[2016-09-18 05:49] LABS: PARTIAL THROMBOPLASTIN TIME 31.2 Sec (25.0-35.0)
[2016-09-18 05:59] LABS: ALBUMIN 3.7 g/dl (3.3-4.9); ALBUMIN/GLOBULIN RATIO 1.23; BILIRUBIN,INDIRECT 0.3 mg/dl (0-1.1); BILIRUBIN,TOTAL 0.3 mg/dl (0.2-1.3); CALCIUM 9.1 mg/dl (8.4-10.2); CREATININE 0.73 mg/dl (0.61-1.24); MAGNESIUM 1.7 mg/dl (1.7-2.5); PHOSPHORUS 3.1 mg/dl (2.5-4.9); POTASSIUM 3.5 mmol/L (3.5-5.1); TOTAL PROTEIN 6.7 g/dl (6.1-8.1)
[2016-09-18 06:09] LABS: CALCIUM 8.9 mg/dl (8.4-10.2); CREATININE 0.78 mg/dl (0.61-1.24); POTASSIUM 3.6 mmol/L (3.5-5.1)
[2016-09-18] MEDS: HYDROCODONE/APAP (5/325) TAB PO PRN ×3 (06:36→18:09)
[2016-09-18 07:34] VITALS: BP 134/70; RESP 14
[2016-09-18] MEDS: FAMOTIDINE 20 MG INJ IV SCH (08:36)
[2016-09-18] MEDS: ENOXAPARIN 40 MG/0.4 ML SYG SC SCH (09:11)
--- NOTE | 2016-09-18 10:55 | PN ---
Date/Time of Note Date/Time of Note DATE: 09/18/16 TIME: 10:55 Assessment/Plan Lines/Catheters IV Catheter Type (from Nrs): Saline Lock [place] in Place (from Nrs): No Assessment/Plan Assessment/Plan [facility] Progress Note Date of Service: 09/18/2016 Place of service: [facility] fourth floor Today's Assessment & Plan: Overall stable and doing well. No indication of major postoperative surgical complication or surgical site infection. No indication for acute surgical intervention. Patient had difficulty with urination and he does not have adequate support at home. He has enough discomfort and reasons to stay in house 1 more night. Possible discharge home tomorrow if no other further issues. With above assessment, I've recommended the following for today: 1. Keep in-house 2. Increase activity 3. Increase incentive spirometry 4. Saline lock IV 5. Oral conversion 6. Set up for discharge home early in the morning 7. Discharge instructions: "Please call [phone] if any of fever, nausea, vomiting, discharge from wound, wound redness, increase or sudden pain, blood in stool or vomit, or any other unusual signs or symptoms. Also, please call the same number in a few days to schedule an appointment for your follow up visit. Patient may remove dressings tomorrow. Showers OK starting tomorrow. No swimming , hot tub or bath for 2 weeks. No lifting more than 25 lbs for 8 weeks." Thank you again for your great care of this very pleasant patient and wonderful family. If there are any questions, please feel free to call me at [phone]. Nature of presenting problem: Moderate severity Please note that, given the low number of diagnoses or management options, the low amount and/or complexity of data needed to be reviewed, and moderate risk of complications and/or morbidity or mortality, this qualifies as low complexity type of decision-making. Disclaimer: Inadvertent spelling and grammatical errors are likely due to EHR/ dictation software use and do not reflect on the quality of delivered patient care. Also, please note that the electronic time recorded on this node does not necessarily reflect the actual time of the visit. Updated clinical summary: 56-year-old gentleman with right inguinal hernia who presented to [facility] emergency department with incarcerated right inguinal hernia associated with nausea and vomiting and white blood cell count of 16. S/ p laparoscopic right inguinal hernia repair with mesh (10 cm x 15 cm Symbotex). Comorbidities: 1. Right inguinal hernia with incarceration possible bowel obstruction. History of inguinal hernia on the right. S/p laparoscopic right inguinal hernia repair with mesh (10 cm x 15 cm Symbotex) [facility] 09/17/2016. 2. Smoking (current every day) 3. Infrarenal mid abdominal aortic aneurysm with maximal transverse dimension of 3.3 cm. ([facility] CT abd/pelvis 09/17/16) 4. Small hiatal hernia. ([facility] CT abd/pelvis 09/17/16) 5. Status post umbilical hernia repair Subjective: No major events or complaints other than above difficulty with urination and requires straight cathing; no major abd pain and under control with medications ; no n/v/d; no sob or cp; + flatus; - BM; + activity Objective: Vitals: See below I's & O's: See below Exam: GENERAL: On exam, the patient was lying in bed and appeared to be comfortable and in no acute distress. ABDOMEN: Soft, minimal to moderately tender in the right lower quadrant near the incisions and nondistended. Incision dressings are clean, dry and intact without any evidence of underlying erythema, edema, discharge, or hernia. No evidence of recurrent hernia with Valsalva and no evidence of hematoma or other issues in the scrotum. There are no peritoneal signs or guarding. SKIN: Skin appears to be pink and feels warm to touch. NEUROLOGIC: Patient is awake, alert, and follows commands appropriately. Labs: See below Exam/Review of Systems Vital Signs Vitals Vital Signs Date Time Temp Pulse Resp B/P Pulse Ox O2 Delivery O2 Flow Rate FiO2 09/18/16 07:34 98.1 50 14 134/70 96 09/17/16 13:30 Room Air 09/16/16 22:40 100 Intake and Output 09/17/16 09/17/16 09/18/16 15:00 23:00 07:00 Intake Total 800 ml 900 ml 1850 ml Output Total 255 ml 500 ml 1000 ml Balance 545 ml 400 ml 850 ml Results Result Diagram: 09/18/16 0432 09/18/16 0432 SHIELA GUEVARA M.D. Sep 18, 2016 10:55
--- NOTE | 2016-09-18 16:54 | PN ---
Date/Time of Note Date/Time of Note DATE: 09/18/16 TIME: 16:49 Assessment/Plan VTE Prophylaxis VTE Prophylaxis Intervention: SCD's Lines/Catheters IV [facility] Type (from [facility] Saline Lock Urinary Cath still in place: No Assessment/Plan Assessment/Plan - sp Laparoscopic right inguinal hernia repair with mesh (10 cm x 15 cm Symbotex ) - Right inguinal hernia with incarceration possible bowel obstruction. History of inguinal hernia on the right - Infrarenal mid abdominal aortic aneurysm with maximal transverse dimension of 3.3 cm. ([facility] CT abd/pelvis 09/17/16) -Per surgery -N.p.o., diet per surgery -IV fluids -Pain control - Incentive spirometer -Check for signs and symptoms of infection - Current Tobaccoism- everyday - smoking cessation -Dyslipidemia -Chronic obstructive pulmonary disease-no active issues - Small hiatal hernia. - Status post umbilical hernia repair -SCDs for DVT prophylaxis Patient is n.p.o. hold to p.o. medications once stable further recommendations based on patient's clinical course and of care discussed with Dr. Leon/staff /the patient, Subjective 24 Hr Interval Summary Free Text/Dictation per staff- patient retained urine, bladder scan showed 600 cc pre voided, patient was cath and drained 650 cc. better now. Leukocytosis noticed, surgery followa- anticipate dc home tomorrow per sx. staff Respiratory: no complaints Cardiovascular: no complaints Gastrointestinal: other (sp surgery) Exam/Review of Systems Vital Signs Vitals Vital Signs Date Time Temp Pulse Resp B/P Pulse Ox O2 Delivery O2 Flow Rate FiO2 09/18/16 07:34 98.1 50 14 134/70 96 09/17/16 13:30 Room Air 09/16/16 22:40 100 Intake and Output 09/17/16 09/17/16 09/18/16 14:59 22:59 06:59 Intake Total 800 ml 900 ml 1850 ml Output Total 255 ml 500 ml 1000 ml Balance 545 ml 400 ml 850 ml Exam Constitutional: alert, oriented, well developed Respiratory: clear to auscultation, normal air movement Gastrointestinal: non-tender, soft Genitourinary - Male: other (urine retention- sp cath) Extremities: normal pulses Neurological: nl mental status, nl speech Skin: other Results Result Diagram: 09/18/1643109/18/16 0432 Results 24 hrs Laboratory Tests Test 09/18/16 04:32 White Blood Count 18.3 H Red Blood Count 4.71 Hemoglobin 14.2 Hematocrit 42.7 Mean Corpuscular Volume 90.7 Mean Corpuscular Hemoglobin 30.1 Mean Corpuscular Hemoglobin Concent 33.3 Red Cell Distribution Width 13.6 Platelet Count 290 Mean Platelet Volume 10.2 Neutrophils % 76.1 Lymphocytes % 15.4 Monocytes % 6.9 Eosinophils % 0.5 Basophils % 0.6 Nucleated Red Blood Cells % 0.0 Neutrophils # 13.9 H Lymphocytes # 2.8 Monocytes # 1.3 H Eosinophils # 0.1 Basophils # 0.1 Nucleated Red Blood Cells # 0.0 Prothrombin Time 12.6 Prothrombin Time Ratio 1.0 INR International Normalized Ratio 0.94 Activated Partial Thromboplast Time 31.2 Sodium Level 144 Potassium Level 3.6 Chloride Level 104 Carbon Dioxide Level 27 Anion Gap 17 H Blood Urea Nitrogen 11 Creatinine 0.78 Glucose Level 97 Calcium Level 8.9 Phosphorus Level 3.1 Magnesium Level 1.7 Total Bilirubin 0.3 Direct Bilirubin 0.00 Indirect Bilirubin 0.3 Aspartate Amino Transf (AST/SGOT) 22 Alanine Aminotransferase (ALT/SGPT) 25 Alkaline Phosphatase 111 B-Type Natriuretic Peptide 469 H Total Protein 6.7 # Albumin 3.7 Globulin 3.00 Albumin/Globulin Ratio 1.23 Medications Medications Current Medications Morphine Sulfate (morphine) 4 mg Q4H PRN IV SEVERE PAIN LEVEL 7-10 Last administered on 09/17/16 23:22; Admin Dose 4 MG; Start 09/17/16 at 01:00 Hydromorphone HCl (Dilaudid) 1 mg Q3H PRN IV PAIN LEVEL 7-10; Start 09/17/16 at 02:00 Ondansetron HCl 4 mg 4 mg Q4H PRN IV NAUSEA AND/OR VOMITING; Start 09/17/16 at 02:00 Potassium Chloride/Dextrose/ Sod Cl (D5-1/2ns + KCl 20 Meq) 1,000 ml @ 100 mls/ hr Q10H IV Last administered on 09/17/16 10:29; Admin Dose 100 MLS/HR; Start 09/17/16 at 09:00 Acetaminophen/ Hydrocodone Bitart ([place] (5/325)) 1 tab Q4H PRN PO PAIN LEVEL 4 -7; Start 09/17/16 at 09:00 Acetaminophen/ Hydrocodone Bitart ([place] (5/325)) 2 tab Q4H PRN PO PAIN LEVEL 7 -10 Last administered on 09/18/16 14:14; Admin Dose 2 TAB; Start 09/17/16 at 09 :00 Hydromorphone HCl (Dilaudid) 0.5 mg Q2H PRN IV PAIN; Start 09/17/16 at 09:00 Hydromorphone HCl (Dilaudid) 1 mg Q2H PRN IV SEVERE PAIN; Start 09/17/16 at 09: 00 Docusate Sodium (Colace) 100 mg BID PRN PO CONSTIPATION; Start 09/17/16 at 09: 00 Bisacodyl (Dulcolax Supp) 10 mg BID PRN [place] CONSTIPATION; Start 09/17/16 at 09: 00 Sodium Biphosphate/ Sodium Phosphate (Fleet Enema) 133 ml BID PRN [place] CONSTIPATION; Start 09/17/16 at 09:00 Famotidine (Pepcid Iv) 20 mg DAILY IV Last administered on 09/18/16 08:36; Admin Dose 20 MG; Start 09/17/16 at 09:00 Enoxaparin Sodium (Lovenox) 40 mg DAILY SC Last administered on 09/18/16 09:11 ; Admin Dose 40 MG; Start 09/17/16 at 09:00 Zolpidem Tartrate (Ambien) 5 mg HS PRN PO INSOMNIA Last administered on 21:37; Admin Dose 5 MG; Start 09/17/16 at 21:00 BHAVNA BARKER Sep 18, 2016 16:54
[2016-09-18] MEDS: LORAZEPAM 0.5 MG TAB PO PRN (18:39)
[2016-09-18 19:20] VITALS: BP 144/72; RESP 16
[2016-09-18] MEDS: ZOLPIDEM 5 MG TAB PO PRN (22:52)
[2016-09-19] MEDS: D5W-0.45 NACL + KCL 20 MEQ 1,000 ML IV SCH ×2 (01:00→11:00)
[2016-09-19] MEDS: HYDROCODONE/APAP (5/325) TAB PO PRN ×2 (03:10→09:01)
[2016-09-19 05:24] LABS: BASOPHIL # 0.1 10^3/ul (0.0-0.1); BASOPHILS % 0.8 % (0.0-2.0); EOSINOPHILS # 0.7 10^3/ul (0.0-0.5); EOSINOPHILS % 5.4 % (0.0-7.0); HEMATOCRIT 43.5 % (42.0-52.0); HEMOGLOBIN 14.6 g/dl (14.0-18.0); LYMPHOCYTES # 2.7 10^3/ul (0.8-2.9); LYMPHOCYTES % 21.9 % (15.0-51.0); MEAN CORPUSCULAR HEMOGLOBIN 30.2 pg (29.0-33.0); MEAN CORPUSCULAR HGB CONC 33.6 g/dl (32.0-37.0); MEAN CORPUSCULAR VOLUME 89.9 fl (82.0-101.0); MONOCYTE # 1.1 10^3/ul (0.3-0.9); MONOCYTES % 8.4 % (0.0-11.0); NEUTROPHIL # 7.9 10^3/ul (1.6-7.5); NEUTROPHILS % 63.1 % (39.0-77.0); PLATELET COUNT 290 10^3/UL (140-415); RED BLOOD COUNT 4.84 10^6/ul (4.70-6.10); RED CELL DISTRIBUTION WIDTH 13.3 % (11.5-14.5); WHITE BLOOD COUNT 12.5 10^3/ul (4.8-10.8)
[2016-09-19 05:44] LABS: CALCIUM 9.3 mg/dl (8.4-10.2); CREATININE 0.79 mg/dl (0.61-1.24); POTASSIUM 3.8 mmol/L (3.5-5.1)
[2016-09-19] MEDS: FAMOTIDINE 20 MG INJ IV SCH (09:01)
[2016-09-19 09:20] VITALS: BP 128/75; RESP 20
--- NOTE | 2016-09-19 14:52 | PN ---
Date/Time of Note Date/Time of Note DATE: 09/19/16 TIME: 14:45 Assessment/Plan VTE Prophylaxis VTE Prophylaxis Intervention: SCD's Lines/Catheters IV Catheter Type (from Nrs): Saline Lock Urinary Cath still in place: Yes Reason Cath still needed: urinary retention Assessment/Plan Chief Complaint/Hosp Course Patient is unable to void requiring in and out catheter every 6 hours, will insert for Wyatt, the patient is able to tolerate diet well, pain is well controlled. Problems: Assessment/Plan - Urinary retention, will start patient on Urecholine, Dr. Thao is asked to see patient in urology consultation - Right inguinal hernia with incarceration possible bowel obstruction, status post laparoscopic right inguinal hernia repair with mesh by Dr. Santos. - Dyslipidemia - COPD, continue breathing treatment as needed. - Ongoing tobacco use - Infrarenal mid abdominal aortic aneurysm with maximal transverse dimension of 3.3 cm. Further recommendations based on clinical course. Plan of care discussed with Dr. Leon. Exam/Review of Systems Vital Signs Vitals Vital Signs Date Time Temp Pulse Resp B/P Pulse Ox O2 Delivery O2 Flow Rate FiO2 09/19/16 09:20 97.1 45 20 128/75 96 09/17/16 13:30 Room Air 09/16/16 22:40 100 Intake and Output 09/18/16 09/18/16 09/19/16 15:00 23:00 07:00 Intake Total 900 ml 500 ml Output Total 1300 ml 1000 ml Balance -400 ml -500 ml Exam Constitutional: alert, oriented Neck: supple Respiratory: normal air movement Cardiovascular: nl pulses Gastrointestinal: other (Status post surgery), soft Genitourinary - Male: other (Wyatt) Extremities: normal pulses Neurological: nl mental status Results Result Diagram: 09/19/16 0429 09/19/16 0429 Results 24 hrs Laboratory Tests Test 09/19/16 04:29 White Blood Count 12.5 #H Red Blood Count 4.84 Hemoglobin 14.6 Hematocrit 43.5 Mean Corpuscular Volume 89.9 Mean Corpuscular Hemoglobin 30.2 Mean Corpuscular Hemoglobin Concent 33.6 Red Cell Distribution Width 13.3 Platelet Count 290 Mean Platelet Volume 10.0 Neutrophils % 63.1 Lymphocytes % 21.9 Monocytes % 8.4 Eosinophils % 5.4 Basophils % 0.8 Nucleated Red Blood Cells % 0.0 Neutrophils # 7.9 H Lymphocytes # 2.7 Monocytes # 1.1 H Eosinophils # 0.7 H Basophils # 0.1 Nucleated Red Blood Cells # 0.0 Sodium Level 142 Potassium Level 3.8 Chloride Level 99 Carbon Dioxide Level 29 Anion Gap 18 H Blood Urea Nitrogen 10 Creatinine 0.79 Glucose Level 81 Calcium Level 9.3 Medications Medications Current Medications Morphine Sulfate (morphine) 4 mg Q4H PRN IV SEVERE PAIN LEVEL 7-10 Last administered on 09/17/16 23:22; Admin Dose 4 MG; Start 09/17/16 at 01:00 Hydromorphone HCl (Dilaudid) 1 mg Q3H PRN IV PAIN LEVEL 7-10; Start 09/17/16 at 02:00 Ondansetron HCl 4 mg 4 mg Q4H PRN IV NAUSEA AND/OR VOMITING; Start 09/17/16 at 02:00 Potassium Chloride/Dextrose/ Sod Cl (D5-1/2ns + KCl 20 Meq) 1,000 ml @ 100 mls/ hr Q10H IV Last administered on 09/17/16 10:29; Admin Dose 100 MLS/HR; Start 09/17/16 at 09:00 Acetaminophen/ Hydrocodone Bitart ([place] (5/325)) 1 tab Q4H PRN PO PAIN LEVEL 4 -7; Start 09/17/16 at 09:00 Acetaminophen/ Hydrocodone Bitart ([place] (5/325)) 2 tab Q4H PRN PO PAIN LEVEL 7 -10 Last administered on 09/19/16 09:01; Admin Dose 2 TAB; Start 09/17/16 at 09 :00 Hydromorphone HCl (Dilaudid) 0.5 mg Q2H PRN IV PAIN; Start 09/17/16 at 09:00 Hydromorphone HCl (Dilaudid) 1 mg Q2H PRN IV SEVERE PAIN; Start 09/17/16 at 09: 00 Docusate Sodium (Colace) 100 mg BID PRN PO CONSTIPATION; Start 09/17/16 at 09: 00 Bisacodyl (Dulcolax Supp) 10 mg BID PRN [place] CONSTIPATION; Start 09/17/16 at 09: 00 Sodium Biphosphate/ Sodium Phosphate (Fleet Enema) 133 ml BID PRN [place] CONSTIPATION; Start 09/17/16 at 09:00 Famotidine (Pepcid Iv) 20 mg DAILY IV Last administered on 09/19/16 09:01; Admin Dose 20 MG; Start 09/17/16 at 09:00 Zolpidem Tartrate (Ambien) 5 mg HS PRN PO INSOMNIA Last administered on 22:52; Admin Dose 5 MG; Start 09/17/16 at 21:00 Lorazepam (Ativan) 0.5 mg Q6H PRN PO ANXIETY Last administered on 09/18/16 18: 39; Admin Dose 0.5 MG; Start 09/18/16 at 18:30 ZIYAD LUGO Sep 19, 2016 14:52
--- NOTE | 2016-09-19 15:24 | PN ---
Date/Time of Note Date/Time of Note DATE: 09/19/16 TIME: 15:21 Assessment/Plan Lines/Catheters IV Catheter Type (from Nrs): Saline Lock Wyatt in Place (from Nrs): Yes Assessment/Plan Assessment/Plan [facility] Progress Note Date of Service: 09/19/2016 Place of service: [facility] fourth floor Today's Assessment & Plan: Overall stable and doing well. No indication of major postoperative surgical complication or surgical site infection. No indication for acute surgical intervention. Patient's difficulty with urination seem resolved this morning. He may need further care from primary care physician or referral to urologist for prostate evaluation. Does not appear to be a permanent postoperative related issue. At this point, he qualifies for discharge from my standpoint. With above assessment, I've recommended the following for today: 1. Discharge home 2. Discharge instructions: "Please call [phone] if any of fever, nausea, vomiting, discharge from wound, wound redness, increase or sudden pain, blood in stool or vomit, or any other unusual signs or symptoms. Also, please call the same number in a few days to schedule an appointment for your follow up visit. Patient may remove dressings tomorrow. Showers OK starting tomorrow. No swimming , hot tub or bath for 2 weeks. No lifting more than 25 lbs for 8 weeks." Thank you again for your great care of this very pleasant patient and wonderful family. If there are any questions, please feel free to call me at [phone]. Nature of presenting problem: Moderate severity Please note that, given the low number of diagnoses or management options, the low amount and/or complexity of data needed to be reviewed, and moderate risk of complications and/or morbidity or mortality, this qualifies as low complexity type of decision-making. Disclaimer: Inadvertent spelling and grammatical errors are likely due to EHR/ dictation software use and do not reflect on the quality of delivered patient care. Also, please note that the electronic time recorded on this node does not necessarily reflect the actual time of the visit. Updated clinical summary: 56-year-old gentleman with right inguinal hernia who presented to [facility] emergency department with incarcerated right inguinal hernia associated with nausea and vomiting and white blood cell count of 16. S/ p laparoscopic right inguinal hernia repair with mesh (10 cm x 15 cm Symbotex). Comorbidities: 1. Right inguinal hernia with incarceration possible bowel obstruction. History of inguinal hernia on the right. S/p laparoscopic right inguinal hernia repair with mesh (10 cm x 15 cm Symbotex) [facility] 09/17/2016. 2. Smoking (current every day) 3. Infrarenal mid abdominal aortic aneurysm with maximal transverse dimension of 3.3 cm. ([facility] CT abd/pelvis 09/17/16) 4. Small hiatal hernia. ([facility] CT abd/pelvis 09/17/16) 5. Status post umbilical hernia repair Subjective: No major events or complaints other than above difficulty with urination and requires straight cathing; no major abd pain and under control with medications ; no n/v/d; no sob or cp; + flatus; - BM; + activity Objective: Vitals: See below I's & O's: See below Exam: GENERAL: On exam, the patient was lying in bed and appeared to be comfortable and in no acute distress. ABDOMEN: Soft, minimal to moderately tender in the right lower quadrant near the incisions and nondistended. Incision dressings d/c'd and incisions are clean, dry and intact without any evidence of erythema, edema, discharge, or hernia. No evidence of recurrent hernia with Valsalva and no evidence of hematoma or other issues in the scrotum. There are no peritoneal signs or guarding. SKIN: Skin appears to be pink and feels warm to touch. NEUROLOGIC: Patient is awake, alert, and follows commands appropriately. Labs: See below Exam/Review of Systems Vital Signs Vitals Vital Signs Date Time Temp Pulse Resp B/P Pulse Ox O2 Delivery O2 Flow Rate FiO2 09/19/16 09:20 97.1 45 20 128/75 96 09/17/16 13:30 Room Air 09/16/16 22:40 100 Intake and Output 09/18/16 09/18/16 09/19/16 15:00 23:00 07:00 Intake Total 900 ml 500 ml Output Total 1300 ml 1000 ml Balance -400 ml -500 ml Results Result Diagram: 09/19/16 0429 09/19/16 0429 SHIELA GUEVARA M.D. Sep 19, 2016 15:24
[2016-09-19] MEDS: LORAZEPAM 0.5 MG TAB PO PRN (17:48)
--- NOTE | 2016-09-19 19:16 | CONS ---
Date/Time of Note Date/Time of Note DATE: 09/19/16 TIME: 19:03 Assessment/Plan Assessment/Plan Chief Complaint/Hosp Course Postop urinary retention, his prostate is mildly enlarged and would not account for his urinary retention. However it may be a factor. Most likely his urinary retention is related to the fact that he is in bed, side effect of anesthesia and pain medications He has mild BPH, I did put him on tamsulosin 0.4 mg at bedtime and 1 in the morning Discontinue the Wyatt catheter at 6 AM, check his voiding and his postvoid residual was a bladder scan. We will do straight cath for a postvoid residual of over 300 mL or if he does not void and the bladder scan shows over 500 mL Problems: Additional Assessment/Plan I encouraged the patient to ambulate and if he can take less pain medications so when the Wyatt catheter is removed at 6 AM he has a better chance of urinating. Consultation Date/Type/Reason Admit Date/Time Sep 16, 2016 at 23:16 Date of Consultation: Sep 19, 2016 Type of Consultation: Urology Reason for Consultation Urinary retention Referring Provider: RIVERA ANDERSON MD Hx of Present Illness 56-year-old male who is known to have a right inguinal hernia presented to the emergency room on September 16, 2016 with increasing pain in the inguinal area. He underwent a CT scan of the abdomen and pelvis and that showed possible incarcerated right inguinal hernia. The patient underwent laparoscopic right inguinal hernia repair with mesh on September 17. Postop he has not been able to urinate and required intermittent catheterization. Therefore a urological consultation was requested. Prior to his surgery the patient usually has nocturia about once a night. He voids about 2 times during the day. He describes his urinary stream is good, no dysuria no gross hematuria no postvoid dribbling and he feels he empties his bladder well. He has not had any problem was urinary retention before, no history of kidney stones and no prior urological intervention. After multiple catheterizations he did have bleeding from his urethra earlier this morning therefore a Wyatt catheter was inserted and kept in. Constitutional: no complaints Eyes: no complaints ENT: no complaints Respiratory: no complaints Cardiovascular: no complaints Gastrointestinal: other (sp surgery, he did have nausea and vomiting when he was admitted), No nausea, No vomiting Genitourinary: no complaints, other (Urinary retention, presently he has an indwelling Wyatt catheter) Musculoskeletal: no complaints Skin: no complaints Neurologic: no complaints Endocrine: no complaints Lymphatic: no complaints Psychological: no complaints Past Medical History Medical History: no pertinent history Past Surgical History Past Surgical Hx: other (Prior history of umbilical hernia repair, presently he is status post laparoscopic right inguinal hernia repair) Family History Significant Family History: no pertinent family hx Social History Alcohol Use: occasionally Smoking Status: Current every day smoker Drug Use: none Exam/Review of Systems Vital Signs Vitals Vital Signs Date Time Temp Pulse Resp B/P Pulse Ox O2 Delivery O2 Flow Rate FiO2 09/19/16 09:20 97.1 45 20 128/75 96 09/17/16 13:30 Room Air 09/16/16 22:40 100 Intake and Output 09/18/16 09/18/16 09/19/16 15:00 23:00 07:00 Intake Total 900 ml 500 ml Output Total 1300 ml 1000 ml Balance -400 ml -500 ml Exam Constitutional: alert, oriented Psych: no complaints Head: normocephalic Eyes: nl conjunctiva ENMT: nl external ears & nose Neck: non-tender, supple Respiratory: normal air movement Cardiovascular: nl pulses Gastrointestinal: soft, surgical scars (From recent laparoscopic hernia repair) Genitourinary - Male: other (, Rectal exam prostate is soft and mildly enlarged ) Musculoskeletal: nl extremities to inspection Extremities: normal pulses, No edema Skin: nl turgor Results Result Diagram: 09/19/1642809/19/16 0429 Results 24 hrs Laboratory Tests Test 09/19/16 04:29 White Blood Count 12.5 #H Red Blood Count 4.84 Hemoglobin 14.6 Hematocrit 43.5 Mean Corpuscular Volume 89.9 Mean Corpuscular Hemoglobin 30.2 Mean Corpuscular Hemoglobin Concent 33.6 Red Cell Distribution Width 13.3 Platelet Count 290 Mean Platelet Volume 10.0 Neutrophils % 63.1 Lymphocytes % 21.9 Monocytes % 8.4 Eosinophils % 5.4 Basophils % 0.8 Nucleated Red Blood Cells % 0.0 Neutrophils # 7.9 H Lymphocytes # 2.7 Monocytes # 1.1 H Eosinophils # 0.7 H Basophils # 0.1 Nucleated Red Blood Cells # 0.0 Sodium Level 142 Potassium Level 3.8 Chloride Level 99 Carbon Dioxide Level 29 Anion Gap 18 H Blood Urea Nitrogen 10 Creatinine 0.79 Glucose Level 81 Calcium Level 9.3 Medications Medications Current Medications Morphine Sulfate (morphine) 4 mg Q4H PRN IV SEVERE PAIN LEVEL 7-10 Last administered on 09/17/16 23:22; Admin Dose 4 MG; Start 09/17/16 at 01:00 Hydromorphone HCl (Dilaudid) 1 mg Q3H PRN IV PAIN LEVEL 7-10; Start 09/17/16 at 02:00 Ondansetron HCl (Zofran Inj) 4 mg Q4H PRN IV NAUSEA AND/OR VOMITING; Start at 02:00 Acetaminophen/ Hydrocodone Bitart ([place] (5/325)) 1 tab Q4H PRN PO PAIN LEVEL 4 -7; Start 09/17/16 at 09:00 Acetaminophen/ Hydrocodone Bitart ([place] (5/325)) 2 tab Q4H PRN PO PAIN LEVEL 7 -10 Last administered on 09/19/16 09:01; Admin Dose 2 TAB; Start 09/17/16 at 09 :00 Hydromorphone HCl (Dilaudid) 0.5 mg Q2H PRN IV PAIN; Start 09/17/16 at 09:00 Hydromorphone HCl (Dilaudid) 1 mg Q2H PRN IV SEVERE PAIN; Start 09/17/16 at 09: 00 Docusate Sodium (Colace) 100 mg BID PRN PO CONSTIPATION; Start 09/17/16 at 09: 00 Bisacodyl (Dulcolax Supp) 10 mg BID PRN [place] CONSTIPATION; Start 09/17/16 at 09: 00 Sodium Biphosphate/ Sodium Phosphate (Fleet Enema) 133 ml BID PRN [place] CONSTIPATION; Start 09/17/16 at 09:00 Famotidine (Pepcid Iv) 20 mg DAILY IV Last administered on 09/19/16 09:01; Admin Dose 20 MG; Start 09/17/16 at 09:00 Zolpidem Tartrate (Ambien) 5 mg HS PRN PO INSOMNIA Last administered on 22:52; Admin Dose 5 MG; Start 09/17/16 at 21:00 Lorazepam (Ativan) 0.5 mg Q6H PRN PO ANXIETY Last administered on 09/19/16 17: 48; Admin Dose 0.5 MG; Start 09/18/16 at 18:30 Bethanechol Chloride (Urecholine) 10 mg TID NGT ; Start 09/19/16 at 21:00 EWA COATES MD Sep 19, 2016 19:15
[2016-09-19 20:33] VITALS: BP 142/79; RESP 16
[2016-09-19] MEDS: BETHANECHOL 10 MG TAB NGT SCH (21:00)
[2016-09-19] MEDS: TAMSULOSIN (SR) 0.4 MG CAP PO SCH (21:00)
[2016-09-20 05:11] LABS: BASOPHIL # 0.1 10^3/ul (0.0-0.1); BASOPHILS % 0.7 % (0.0-2.0); EOSINOPHILS # 1.2 10^3/ul (0.0-0.5); EOSINOPHILS % 9.1 % (0.0-7.0); HEMATOCRIT 46.3 % (42.0-52.0); LYMPHOCYTES # 2.6 10^3/ul (0.8-2.9); LYMPHOCYTES % 20.2 % (15.0-51.0); MEAN CORPUSCULAR HEMOGLOBIN 30.4 pg (29.0-33.0); MEAN CORPUSCULAR HGB CONC 34.6 g/dl (32.0-37.0); MEAN PLATELET VOLUME 9.9 fl (7.4-10.4); MONOCYTE # 1.1 10^3/ul (0.3-0.9); MONOCYTES % 8.4 % (0.0-11.0); NEUTROPHIL # 7.9 10^3/ul (1.6-7.5); NEUTROPHILS % 61.3 % (39.0-77.0); PLATELET COUNT 302 10^3/UL (140-415); RED BLOOD COUNT 5.26 10^6/ul (4.70-6.10); RED CELL DISTRIBUTION WIDTH 12.9 % (11.5-14.5); WHITE BLOOD COUNT 12.9 10^3/ul (4.8-10.8)
[2016-09-20 05:51] LABS: CALCIUM 9.4 mg/dl (8.4-10.2); CREATININE 0.86 mg/dl (0.61-1.24); POTASSIUM 3.8 mmol/L (3.5-5.1)
[2016-09-20 08:35] VITALS: BP 136/86; RESP 18
[2016-09-20] MEDS: TAMSULOSIN (SR) 0.4 MG CAP PO SCH ×2 (09:46→20:45)
[2016-09-20] MEDS: BETHANECHOL 10 MG TAB NGT SCH ×3 (09:47→20:45)
[2016-09-20] MEDS: HYDROCODONE/APAP (5/325) TAB PO PRN (09:47)
[2016-09-20] MEDS: FAMOTIDINE 20 MG TAB PO SCH (09:47)
--- NOTE | 2016-09-20 10:38 | PN ---
Date/Time of Note Date/Time of Note DATE: 09/20/16 TIME: 10:36 Assessment/Plan Lines/Catheters IV Catheter Type (from Nrs): Saline Lock Wyatt in Place (from Nrs): Yes Assessment/Plan Assessment/Plan [facility] Progress Note Date of Service: 09/20/2016 Place of service: [facility] fourth floor Today's Assessment & Plan: Overall stable and doing well. No indication of major postoperative surgical complication or surgical site infection. No indication for acute surgical intervention. Patient's difficulty with urination seem resolved (much appreciate Dr. Thao's excellent care and input). Ok to discharge from my standpoint. With above assessment, I've recommended the following for today: 1. Discharge home 2. Discharge instructions: "Please call [phone] if any of fever, nausea, vomiting, discharge from wound, wound redness, increase or sudden pain, blood in stool or vomit, or any other unusual signs or symptoms. Also, please call the same number in a few days to schedule an appointment for your follow up visit. Patient may remove dressings tomorrow. Showers OK starting tomorrow. No swimming , hot tub or bath for 2 weeks. No lifting more than 25 lbs for 8 weeks." Thank you again for your great care of this very pleasant patient and wonderful family. If there are any questions, please feel free to call me at [phone]. Nature of presenting problem: Moderate severity Please note that, given the low number of diagnoses or management options, the low amount and/or complexity of data needed to be reviewed, and moderate risk of complications and/or morbidity or mortality, this qualifies as low complexity type of decision-making. Disclaimer: Inadvertent spelling and grammatical errors are likely due to EHR/ dictation software use and do not reflect on the quality of delivered patient care. Also, please note that the electronic time recorded on this node does not necessarily reflect the actual time of the visit. Updated clinical summary: 56-year-old gentleman with right inguinal hernia who presented to [facility] emergency department with incarcerated right inguinal hernia associated with nausea and vomiting and white blood cell count of 16. S/ p laparoscopic right inguinal hernia repair with mesh (10 cm x 15 cm Symbotex). Comorbidities: 1. Right inguinal hernia with incarceration possible bowel obstruction. History of inguinal hernia on the right. S/p laparoscopic right inguinal hernia repair with mesh (10 cm x 15 cm Symbotex) [facility] 09/17/2016. 2. Smoking (current every day) 3. Infrarenal mid abdominal aortic aneurysm with maximal transverse dimension of 3.3 cm. ([facility] CT abd/pelvis 09/17/16) 4. Small hiatal hernia. ([facility] CT abd/pelvis 09/17/16) 5. Status post umbilical hernia repair Subjective: No major events or complaints; no further issues with urination; no major abd pain and under control with medications; no n/v/d; no sob or cp; + flatus; + BM ; + activity Objective: Vitals: See below I's & O's: See below Exam: GENERAL: On exam, the patient was lying in bed and appeared to be comfortable and in no acute distress. ABDOMEN: Soft, minimal to moderately tender in the right lower quadrant near the incisions and nondistended. Incisions are clean, dry and intact without any evidence of erythema, edema, discharge, or hernia. No evidence of recurrent hernia with Valsalva and no evidence of hematoma or other issues in the scrotum. There are no peritoneal signs or guarding. SKIN: Skin appears to be pink and feels warm to touch. NEUROLOGIC: Patient is awake, alert, and follows commands appropriately. Labs: See below Exam/Review of Systems Vital Signs Vitals Vital Signs Date Time Temp Pulse Resp B/P Pulse Ox O2 Delivery O2 Flow Rate FiO2 09/20/16 08:35 98.6 87 18 136/86 95 09/17/16 13:30 Room Air 09/16/16 22:40 100 Intake and Output 09/19/16 09/19/16 09/20/16 15:00 23:00 07:00 Intake Total 960 ml 480 ml Output Total 1250 ml 1100 ml Balance -290 ml -620 ml Results Result Diagram: 09/20/16 0446 09/20/16 0446 SHIELA GUEVARA M.D. Sep 20, 2016 10:38
--- NOTE | 2016-09-20 11:30 | PN ---
Date/Time of Note Date/Time of Note DATE: 09/20/16 TIME: 11:28 Assessment/Plan VTE Prophylaxis VTE Prophylaxis Intervention: SCD's Lines/Catheters IV [facility]from [facility] Saline Lock Urinary Cath still in place: Yes Reason Cath still needed: urinary retention Assessment/Plan Chief Complaint/Hosp Course Patient was started on Flomax and Urecholine yesterday, Wyatt catheter DC'd today in a.m., will continue to monitor postvoid residual. Pain is well controlled with [place]. Assessment/Plan - Urinary retention, Dr. Thao, urology consultation is appreciated. Continue Flomax and Urecholine. Monitor postvoid residual. - Right inguinal hernia with incarceration possible bowel obstruction, status post laparoscopic right inguinal hernia repair with mesh by Dr. Santos. - Dyslipidemia - COPD, continue breathing treatment as needed. - Ongoing tobacco use - Infrarenal mid abdominal aortic aneurysm with maximal transverse dimension of 3.3 cm. Further recommendations based on clinical course. Plan of care discussed with Dr. Leon. Problems: Exam/Review of Systems Vital Signs Vitals Vital Signs Date Time Temp Pulse Resp B/P Pulse Ox O2 Delivery O2 Flow Rate FiO2 09/20/16 08:35 98.6 87 18 136/86 95 09/17/16 13:30 Room Air 09/16/16 22:40 100 Intake and Output 09/19/16 09/19/16 09/20/16 14:59 22:59 06:59 Intake Total 960 ml 480 ml Output Total 1250 ml 1100 ml Balance -290 ml -620 ml Exam Constitutional: alert, oriented Neck: supple Respiratory: normal air movement Cardiovascular: nl pulses Gastrointestinal: other (Status post surgery), soft Extremities: normal pulses Neurological: nl mental status Results Result Diagram: 09/20/16 0446 09/20/16 0446 Results 24 hrs Laboratory Tests Test 09/20/16 04:46 White Blood Count 12.9 H Red Blood Count 5.26 Hemoglobin 16.0 Hematocrit 46.3 Mean Corpuscular Volume 88.0 Mean Corpuscular Hemoglobin 30.4 Mean Corpuscular Hemoglobin Concent 34.6 Red Cell Distribution Width 12.9 Platelet Count 302 Mean Platelet Volume 9.9 Neutrophils % 61.3 Lymphocytes % 20.2 Monocytes % 8.4 Eosinophils % 9.1 H Basophils % 0.7 Nucleated Red Blood Cells % 0.0 Neutrophils # 7.9 H Lymphocytes # 2.6 Monocytes # 1.1 H Eosinophils # 1.2 H Basophils # 0.1 Nucleated Red Blood Cells # 0.0 Sodium Level 143 Potassium Level 3.8 Chloride Level 101 Carbon Dioxide Level 26 Anion Gap 20 H Blood Urea Nitrogen 13 Creatinine 0.86 Glucose Level 96 Calcium Level 9.4 Medications Medications Current Medications Morphine Sulfate (morphine) 4 mg Q4H PRN IV SEVERE PAIN LEVEL 7-10 Last administered on 09/17/16 23:22; Admin Dose 4 MG; Start 09/17/16 at 01:00 Hydromorphone HCl (Dilaudid) 1 mg Q3H PRN IV PAIN LEVEL 7-10; Start 09/17/16 at 02:00 Ondansetron HCl (Zofran Inj) 4 mg Q4H PRN IV NAUSEA AND/OR VOMITING; Start at 02:00 Acetaminophen/ Hydrocodone Bitart ([place] (5/325)) 1 tab Q4H PRN PO PAIN LEVEL 4 -7 Last administered on 09/20/16 09:47; Admin Dose 1 TAB; Start 09/17/16 at 09: 00 Acetaminophen/ Hydrocodone Bitart ([place] (5/325)) 2 tab Q4H PRN PO PAIN LEVEL 7 -10 Last administered on 09/19/16 09:01; Admin Dose 2 TAB; Start 09/17/16 at 09 :00 Hydromorphone HCl (Dilaudid) 0.5 mg Q2H PRN IV PAIN; Start 09/17/16 at 09:00 Hydromorphone HCl (Dilaudid) 1 mg Q2H PRN IV SEVERE PAIN; Start 09/17/16 at 09: 00 Docusate Sodium (Colace) 100 mg BID PRN PO CONSTIPATION; Start 09/17/16 at 09: 00 Bisacodyl (Dulcolax Supp) 10 mg BID PRN [place] CONSTIPATION; Start 09/17/16 at 09: 00 Sodium Biphosphate/ Sodium Phosphate (Fleet Enema) 133 ml BID PRN [place] CONSTIPATION; Start 09/17/16 at 09:00 Zolpidem Tartrate (Ambien) 5 mg HS PRN PO INSOMNIA Last administered on 22:52; Admin Dose 5 MG; Start 09/17/16 at 21:00 Lorazepam (Ativan) 0.5 mg Q6H PRN PO ANXIETY Last administered on 09/19/16 17: 48; Admin Dose 0.5 MG; Start 09/18/16 at 18:30 Bethanechol Chloride (Urecholine) 10 mg TID NGT Last administered on 09/20/16 09:47; Admin Dose 10 MG; Start 09/19/16 at 21:00 Tamsulosin HCl (Flomax) 0.4 mg BID PO Last administered on 09/20/16 09:46; Admin Dose 0.4 MG; Start 09/19/16 at 21:00 Famotidine (Pepcid) 20 mg DAILY PO Last administered on 09/20/16 09:47; Admin Dose 20 MG; Start 09/20/16 at 09:00 ZIYAD LUGO Sep 20, 2016 11:30
[2016-09-20 14:00] VITALS: BP 128/76; RESP 18
--- NOTE | 2016-09-20 18:54 | PN ---
Date/Time of Note Date/Time of Note DATE: 09/20/16 TIME: 18:49 Assessment/Plan VTE Prophylaxis VTE Prophylaxis Intervention: ambulation Lines/Catheters IV C[facility] Type [facility]from [facility] Saline Lock Urinary Cath still in place: No Assessment/Plan Chief Complaint/Hosp Course Postop urinary retention, his prostate is mildly enlarged and would not account for his urinary retention. However it may be a factor. Most likely his urinary retention is related to the fact that he is in bed, side effect of anesthesia and pain medications He has mild BPH, He is on tamsulosin 0.4 mg bid The Wyatt catheter has been discontinued and the patient has been voiding small amount, the postvoid residual has not been high to require intermittent catheterization Continue to monitor his voiding the postvoid residual overnight, continue his Flomax and if he is stable and has no retention he may go home tomorrow morning Problems: Subjective 24 Hr Interval Summary Constitutional: no complaints Eyes: no complaints ENT: no complaints Respiratory: no complaints Cardiovascular: no complaints Gastrointestinal: No nausea, No vomiting Genitourinary: other (Patient is voiding small amount and states he is comfortable) Musculoskeletal: no complaints Skin: no complaints Neurologic: no complaints Endocrine: no complaints Lymphatic: no complaints Exam/Review of Systems Vital Signs Vitals Vital Signs Date Time Temp Pulse Resp B/P Pulse Ox O2 Delivery O2 Flow Rate FiO2 09/20/16 14:00 97.5 55 18 128/76 95 09/17/16 13:30 Room Air 09/16/16 22:40 100 Intake and Output 09/19/16 09/19/16 09/20/16 15:00 23:00 07:00 Intake Total 960 ml 480 ml Output Total 1250 ml 1100 ml Balance -290 ml -620 ml Exam Constitutional: alert, oriented Psych: no complaints Head: normocephalic Eyes: nl conjunctiva ENMT: nl external ears & nose Neck: supple Respiratory: normal air movement Cardiovascular: No edema Gastrointestinal: other (Suprapubic tenderness, I checked him with a bladder scan, there was no urinary retention. A voided 75 mL about 20 minutes earlier and the bladder scan showed about 150 mL postvoid residual), soft Genitourinary - Male: nl penis, nl scrotum Extremities: No calf tenderness, No edema Results Result Diagram: 09/20/166 09/20/16445 Results 24 hrs Laboratory Tests Test 09/20/16 04:46 White Blood Count 12.9 H Red Blood Count 5.26 Hemoglobin 16.0 Hematocrit 46.3 Mean Corpuscular Volume 88.0 Mean Corpuscular Hemoglobin 30.4 Mean Corpuscular Hemoglobin Concent 34.6 Red Cell Distribution Width 12.9 Platelet Count 302 Mean Platelet Volume 9.9 Neutrophils % 61.3 Lymphocytes % 20.2 Monocytes % 8.4 Eosinophils % 9.1 H Basophils % 0.7 Nucleated Red Blood Cells % 0.0 Neutrophils # 7.9 H Lymphocytes # 2.6 Monocytes # 1.1 H Eosinophils # 1.2 H Basophils # 0.1 Nucleated Red Blood Cells # 0.0 Sodium Level 143 Potassium Level 3.8 Chloride Level 101 Carbon Dioxide Level 26 Anion Gap 20 H Blood Urea Nitrogen 13 Creatinine 0.86 Glucose Level 96 Calcium Level 9.4 Medications Medications Current Medications Morphine Sulfate (morphine) 4 mg Q4H PRN IV SEVERE PAIN LEVEL 7-10 Last administered on 09/17/16 23:22; Admin Dose 4 MG; Start 09/17/16 at 01:00 Hydromorphone HCl (Dilaudid) 1 mg Q3H PRN IV PAIN LEVEL 7-10; Start 09/17/16 at 02:00 Ondansetron HCl (Zofran Inj) 4 mg Q4H PRN IV NAUSEA AND/OR VOMITING; Start at 02:00 Acetaminophen/ Hydrocodone Bitart ([place] (5/325)) 1 tab Q4H PRN PO PAIN LEVEL 4 -7 Last administered on 09/20/16 09:47; Admin Dose 1 TAB; Start 09/17/16 at 09: 00 Acetaminophen/ Hydrocodone Bitart ([place] (5/325)) 2 tab Q4H PRN PO PAIN LEVEL 7 -10 Last administered on 09/19/16 09:01; Admin Dose 2 TAB; Start 09/17/16 at 09 :00 Hydromorphone HCl (Dilaudid) 0.5 mg Q2H PRN IV PAIN; Start 09/17/16 at 09:00 Hydromorphone HCl (Dilaudid) 1 mg Q2H PRN IV SEVERE PAIN; Start 09/17/16 at 09: 00 Docusate Sodium (Colace) 100 mg BID PRN PO CONSTIPATION; Start 09/17/16 at 09: 00 Bisacodyl (Dulcolax Supp) 10 mg BID PRN [place] CONSTIPATION; Start 09/17/16 at 09: 00 Sodium Biphosphate/ Sodium Phosphate (Fleet Enema) 133 ml BID PRN [place] CONSTIPATION; Start 09/17/16 at 09:00 Zolpidem Tartrate (Ambien) 5 mg HS PRN PO INSOMNIA Last administered on 22:52; Admin Dose 5 MG; Start 09/17/16 at 21:00 Lorazepam (Ativan) 0.5 mg Q6H PRN PO ANXIETY Last administered on 09/19/16 17: 48; Admin Dose 0.5 MG; Start 09/18/16 at 18:30 Bethanechol Chloride (Urecholine) 10 mg TID NGT Last administered on 09/20/16 14:17; Admin Dose 10 MG; Start 09/19/16 at 21:00 Tamsulosin HCl (Flomax) 0.4 mg BID PO Last administered on 09/20/16 09:46; Admin Dose 0.4 MG; Start 09/19/16 at 21:00 Famotidine (Pepcid) 20 mg DAILY PO Last administered on 09/20/16 09:47; Admin Dose 20 MG; Start 09/20/16 at 09:00 EWA COATES MD Sep 20, 2016 18:54
[2016-09-20 19:44] VITALS: BP 135/78; PULSE 60; RESP 18
[2016-09-20] MEDS: LORAZEPAM 0.5 MG TAB PO PRN (20:45)
[2016-09-21 05:45] LABS: BASOPHIL # 0.1 10^3/ul (0.0-0.1); BASOPHILS % 0.8 % (0.0-2.0); EOSINOPHILS # 1.3 10^3/ul (0.0-0.5); EOSINOPHILS % 11.8 % (0.0-7.0); HEMATOCRIT 46.6 % (42.0-52.0); HEMOGLOBIN 15.9 g/dl (14.0-18.0); LYMPHOCYTES # 2.4 10^3/ul (0.8-2.9); LYMPHOCYTES % 22.1 % (15.0-51.0); MEAN CORPUSCULAR HEMOGLOBIN 30.1 pg (29.0-33.0); MEAN CORPUSCULAR HGB CONC 34.1 g/dl (32.0-37.0); MEAN CORPUSCULAR VOLUME 88.1 fl (82.0-101.0); MEAN PLATELET VOLUME 9.8 fl (7.4-10.4); MONOCYTE # 0.8 10^3/ul (0.3-0.9); MONOCYTES % 7.8 % (0.0-11.0); NEUTROPHIL # 6.1 10^3/ul (1.6-7.5); NEUTROPHILS % 57.1 % (39.0-77.0); PLATELET COUNT 329 10^3/UL (140-415); RED BLOOD COUNT 5.29 10^6/ul (4.70-6.10); RED CELL DISTRIBUTION WIDTH 12.9 % (11.5-14.5); WHITE BLOOD COUNT 10.7 10^3/ul (4.8-10.8)
[2016-09-21 06:07] LABS: CALCIUM 9.4 mg/dl (8.4-10.2); CREATININE 0.82 mg/dl (0.61-1.24); POTASSIUM 3.8 mmol/L (3.5-5.1)
[2016-09-21 07:50] VITALS: BP 113/71; RESP 18
[2016-09-21] MEDS: BETHANECHOL 10 MG TAB NGT SCH ×2 (09:26→13:12)
[2016-09-21] MEDS: TAMSULOSIN (SR) 0.4 MG CAP PO SCH (09:26)
[2016-09-21] MEDS: FAMOTIDINE 20 MG TAB PO SCH (09:26)
[2016-09-21] MEDS: HYDROCODONE/APAP (5/325) TAB PO PRN (09:28)
[2016-09-21] MEDS ORDERED: TAMS-14 PO (13:46)
[2016-09-21] MEDS ORDERED: HYDR-3498 PO (13:46)
--- NOTE | 2016-09-21 16:42 | DS ---
Date/Time of Note Date/Time of Note DATE: 09/21/16 TIME: 16:41 Discharge Summary Admission/Discharge Info Admit Date/Time Sep 16, 2016 at 23:16 Discharge Date/Time Sep 21, 2016 at 14:50 Patient Condition: Good Hx of Present Illness This is a 56-year-old male with a known history of right inguinal hernia this complaint is been hurting him for a month. He says today however the hernia became very severe all of a sudden he was having a lot of pain with nausea and vomiting. He says he has some mild diffuse stomach pain as well. No diarrhea no fever no chest pain shortness of breath. No difficulty urinating or hematuria pain is very severe and sharp in the right inguinal region without radiation. Per patient he smokes every day. Patient denies any fall or accident ROS All systems reviewed and are negative except as per history of present illness. Allergies Allergies: Coded Allergies: No Known Allergy (Unverified , 08/18/16) PMhx/Soc Anesthesia Reaction: No Hx Neurological Disorder: No Hx Respiratory Disorders: No Hx Cardiac Disorders: No Hx Psychiatric Problems: No Hx Miscellaneous Medical Probl: No Hx Alcohol Use: Yes Hx Substance Use: No Hx Tobacco Use: Yes Smoking Status: Current every day smoker FmHx Family History: No coronary disease Hospital Course - Urinary retention, resolved. Dr. Thao, urology consultation is appreciated. Continue Flomax and Urecholine. - Right inguinal hernia with incarceration possible bowel obstruction, status post laparoscopic right inguinal hernia repair with mesh by Dr. Santos. - Dyslipidemia - COPD, continue breathing treatment as needed. - Ongoing tobacco use - Infrarenal mid abdominal aortic aneurysm with maximal transverse dimension of 3.3 cm. Home Meds Active Scripts Tamsulosin Hcl* (Flomax*) 0.4 Mg Cap.er.24h, 0.4 MG PO BID for 7 Days, CAP Prov:ZIYAD LUGO 09/21/16 Hydrocodone Bit-Acetaminophen (Hydrocodone Bit-APAP) 5-325MG Tablet, 1 TAB PO Q4H Y for PAIN LEVEL 4-7, #20 TAB Prov:ZIYAD LUGO 09/21/16 Discontinued Scripts Ibuprofen* (Motrin*) 600 Mg Tab, 600 MG PO Q8, #30 TAB Prov:CHAD GONZALEZ MD 6/22/17 Docusate Sodium* (Colace*) 100 Mg Capsule, 100 MG PO TID, #30 CAP Prov:CHAD GONZALEZ MD 08/18/16 Hydrocodone/Acetaminophen ([place] 10-325 Tablet) 1 Each Tablet, 1 TAB PO Q6H Y for PAIN, #7 TAB Prov:CHAD GONZALEZ MD 08/18/16 Follow-up Plan Follow-up with Dr. Rosie ayala in 2 weeks. Primary Care Provider Care Physician No Primary Time spent on discharge: > 30 minutes Pending Labs Laboratory Tests Test 09/21/16 04:54 White Blood Count 10.710^3/ul (4.8-10.8) Red Blood Count 5.2910^6/ul (4.70-6.10) Hemoglobin 15.9g/dl (14.0-18.0) Hematocrit 46.6% (42.0-52.0) Mean Corpuscular Volume 88.1fl (82.0-101.0) Mean Corpuscular Hemoglobin 30.1pg (29.0-33.0) Mean Corpuscular Hemoglobin Concent 34.1g/dl (32.0-37.0) Red Cell Distribution Width 12.9% (11.5-14.5) Platelet Count 15457^3/UL (140-415) Mean Platelet Volume 9.8fl (7.4-10.4) Neutrophils % 57.1% (39.0-77.0) Lymphocytes % 22.1% (15.0-51.0) Monocytes % 7.8% (0.0-11.0) Eosinophils % 11.8% (0.0-7.0) Basophils % 0.8% (0.0-2.0) Nucleated Red Blood Cells % 0.0/100WBC (0.0-0.0) Neutrophils # 6.110^3/ul (1.6-7.5) Lymphocytes # 2.410^3/ul (0.8-2.9) Monocytes # 0.810^3/ul (0.3-0.9) Eosinophils # 1.310^3/ul (0.0-0.5) Basophils # 0.110^3/ul (0.0-0.1) Nucleated Red Blood Cells # 0.010^3/ul (0.0-0.0) Sodium Level 141mmol/L (135-144) Potassium Level 3.8mmol/L (3.5-5.1) Chloride Level 103mmol/L (97-110) Carbon Dioxide Level 24mmol/L (21-31) Anion Gap 18 (8-16) Blood Urea Nitrogen 14mg/dl (7-20) Creatinine 0.82mg/dl (0.61-1.24) Glucose Level 100mg/dl (70-220) Calcium Level 9.4mg/dl (8.4-10.2) ZIYAD LUGO Sep 21, 2016 16:42
== END 2016-09-21 14:50 | disposition home or self-care (01) | DRG 352 ==
LOC: E/R 20:41 → MS1 23:16
PROVIDERS: ADMIT Internal Medicine; ATTEND Internal Medicine
PROC: 0YU54JZ Supplement Right Inguinal Region with Synthetic Substitute, Percutaneous Endoscopic Approach (ICD-10-PCS; principal; 2016-09-17 06:00)
DX: K40.30 Unilateral inguinal hernia, with obstruction, without gangrene, not specified as recurrent (principal); J44.9 Chronic obstructive pulmonary disease, unspecified; R11.2 Nausea with vomiting, unspecified; I71.4 Abdominal aortic aneurysm, without rupture; K44.9 Diaphragmatic hernia without obstruction or gangrene; F17.210 Nicotine dependence, cigarettes, uncomplicated; E78.5 Hyperlipidemia, unspecified; N40.1 Benign prostatic hyperplasia with lower urinary tract symptoms; R33.8 Other retention of urine
CPT/HCPCS: 36415; 71010; 74176; 80048; 80053; 80076; 83735; 83880; 84100; 85025; 85610; 85730; 93005; 96372; 96374; 96375; 96376; A4310; J1100; J1170; J1650; J2250; J2270; J2405; J2543; J2710; J3010; J3480; J7030; J7040; J7042; J7999

== ENCOUNTER 2016-10-12 12:49 | Outpatient (CLI) | payer OTHER ==
[~2016-10-12] VITALS: Ht 177.8 cm; Wt 70.0 kg
[~2016-10-12 12:49] MED LIST changes: -DOCU-144 PO; +HYDR-3498 PO; -HYDR-902 PO; -IBUP-1542 PO; +TAMS-14 PO
[2016-10-12 13:36] VITALS: BP 112/66; PULSE 61; RESP 16; Ht 177.8 cm; Wt 70.0 kg
--- NOTE | 2016-10-12 18:03 | PN ---
Date/Time of Note Date/Time of Note DATE: 10/12/16 TIME: 18:00 Assessment/Plan Assessment/Plan Assessment/Plan [facility] Progress Note Date of Service: 10/12/2016 Place of service: [facility] fourth floor Today's Assessment & Plan: Overall stable and doing well. No indication of major postoperative surgical complication or surgical site infection. No indication for acute surgical intervention. Patient's difficulty with urination seem resolved. With above assessment, I've recommended the following for today: 1. F/u with PCP 2. F/u with us prn Thank you again for your great care of this very pleasant patient and wonderful family. If there are any questions, please feel free to call me at [phone]. Nature of presenting problem: Moderate severity Please note that, given the low number of diagnoses or management options, the low amount and/or complexity of data needed to be reviewed, and moderate risk of complications and/or morbidity or mortality, this qualifies as low complexity type of decision-making. Disclaimer: Inadvertent spelling and grammatical errors are likely due to EHR/ dictation software use and do not reflect on the quality of delivered patient care. Also, please note that the electronic time recorded on this node does not necessarily reflect the actual time of the visit. Updated clinical summary: 56-year-old gentleman with right inguinal hernia who presented to [facility] emergency department with incarcerated right inguinal hernia associated with nausea and vomiting and white blood cell count of 16. S/ p laparoscopic right inguinal hernia repair with mesh (10 cm x 15 cm Symbotex). D/c home after resolution of urinary retention 09/21/16. Comorbidities: 1. Right inguinal hernia with incarceration possible bowel obstruction. History of inguinal hernia on the right. S/p laparoscopic right inguinal hernia repair with mesh (10 cm x 15 cm Symbotex) [facility] 09/17/2016. Complicated by urinary retention. 2. Smoking (current every day) 3. Infrarenal mid abdominal aortic aneurysm with maximal transverse dimension of 3.3 cm. ([facility] CT abd/pelvis 09/17/16) 4. Small hiatal hernia. ([facility] CT abd/pelvis 09/17/16) 5. Status post umbilical hernia repair Subjective: No major events or complaints since d/c home; no further issues with urination; no major abd pain and no longer taking pain medications; no n/v/d; no sob or cp ; + flatus; + BM; + activity Objective: Vitals: See below Exam: GENERAL: On exam, the patient was sitting in a chair and appeared to be comfortable and in no acute distress. ABDOMEN: Soft, minimal to moderately tender in the right lower quadrant near the incisions and nondistended. Incisions are clean, dry and intact without any evidence of erythema, edema, discharge, or hernia. No evidence of recurrent hernia with Valsalva and no evidence of hematoma or other issues in the scrotum. There are no peritoneal signs or guarding. SKIN: Skin appears to be pink and feels warm to touch. NEUROLOGIC: Patient is awake, alert, and follows commands appropriately. Exam/Review of Systems Vital Signs Vitals Vital Signs Date Time Temp Pulse Resp B/P Pulse Ox O2 Delivery O2 Flow Rate FiO2 10/12/16 13:36 98.1 61 16 112/66 97 Room Air SHIELA GUEVARA M.D. Oct 12, 2016 18:03
== END 2016-10-12 15:03 | disposition home or self-care (01) ==
LOC: HPC 12:49
PROVIDERS: ATTEND Transplant Surgery
DX: K40.90 Unilateral inguinal hernia, without obstruction or gangrene, not specified as recurrent (principal); K44.9 Diaphragmatic hernia without obstruction or gangrene; Z72.0 Tobacco use
CPT/HCPCS: G0463